=== PATIENT | male | born 1960 | race Caucasian/White ===

== ENCOUNTER 2016-08-10 13:47 | Inpatient (IN) | payer MEDICARE, OTHER ==
[2016-08-10] MEDS ORDERED: HYDROmorphone 1 mg/mL 1mL Syr IVP STA ×3 (14:17→16:03)
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
[2016-08-10] MEDS ORDERED: Sodium Chloride 0.9% 1,000 ML IV ONE ×2 (14:19→16:12)
[2016-08-10] MEDS ORDERED: HYDROmorphone 1 mg/mL 1mL Syr ONE ×2 (14:21→16:04)
[2016-08-10 14:42] LABS: % BASOPHILS 0.2 % (0.0-2.0); % EOSINOPHILS 1.2 % (0.0-5.0); % LYMPHOCYTES 12.9 % (20.0-50.0); % MONOCYTES 5.9 % (2.0-10.0); % NEUTROPHILS 79.8 % (40.0-80.0); HEMATOCRIT 40.6 % (39.0-49.0); HEMOGLOBIN 13.7 gm/dL (13.2-17.3); MEAN CORPUSCULAR HEMOGLOBIN 31.7 pg (26.0-30.0); MEAN CORPUSCULAR HGB CONC 33.8 pg (28.0-36.0); MEAN PLATELET VOLUME 6.9 fl; NEUTROPHILE ABSOLUTE 4.6 Th/cmm (1.8-8.0); RED BLOOD COUNT 4.32 Mil/cmm (4.30-5.70); RED CELL DISTRIBUTION WIDTH 12.6 % (11.5-20.0); WHITE BLOOD COUNT 5.7 Th/cmm (4.8-10.8)
[2016-08-10 14:53] LABS: PLATELET COUNT 334 Th/cmm (150-400)
[2016-08-10 14:56] LABS: ALB/GLOB RATIO 1.4 (1.0-1.8); ALKALINE PHOSPHATASE 152 U/L (34-104); AMYLASE SERUM 38 U/L (29-103); ANION GAP 11.6 (7.0-16.0); BILIRUBIN,TOTAL 0.4 mg/dL (0.3-1.0); BUN - UREA NITROGEN 12 mg/dL (7-25); BUN/CREATININE RATIO 13.3; CALCIUM SERUM 10.2 mg/dL (8.6-10.3); CARBON DIOXIDE 21.2 mEq/L (21.0-31.0); CHLORIDE 108 mEq/L (98-107); CREATININE - SERUM 0.9 mg/dL (0.7-1.3); GLUCOSE 112 mg/dL (70-105); LIPASE 18 U/L (11-82); POTASSIUM SERUM 3.8 mEq/L (3.5-5.1); SGOT 15 U/L (13-39); SGPT/ALT 17 U/L (7-52); SODIUM SERUM 137 mEq/L (136-145)
--- NOTE | 2016-08-10 15:50 | Diagnostic Imaging Report ---
CT scan abdomen and pelvis without intravenous contrast HISTORY: Pain Total DLP equals 293 CTDI equals 7.0 Axial sections were obtained from the xiphoid process down to the pubic symphysis. The exam is compared with prior study of June 06, 2016. The liver exhibits a homogeneous parenchyma. No focal lesions. The spleen appears normal. No abnormality seen in the region of the pancreas. Bilateral punctate nonobstructing renal calculi are seen. Little change from the prior study. Intraluminal density seen in the gallbladder suggestive of cholelithiasis. If necessary, an ultrasound exam would provide additional assessment. There appears to be mild dilatation and wall thickening along the ascending colon. Inflammatory change (colitis) cannot be excluded. Clinical correlation is needed. No discrete abnormal masses or fluid collections seen within the pelvis. Several colonic diverticula are noted. Degenerative changes noted to the spine. There is a stable 1.0 cm sclerotic density noted within the left ilium of the pelvis. As an isolated finding, the finding is probably related to an incidental "bone island". IMPRESSION: 1. Mild dilatation along with wall thickening along a segment of the ascending colon. Inflammatory change (colitis or diverticulitis) cannot be excluded. Clinical correlation is needed 2. Stable bilateral punctate nonobstructing renal calculi 3. Intraluminal density within the gallbladder suggesting cholelithiasis. An ultrasound exam would provide additional assessment. 4. Diverticulosis (see above)
[2016-08-10] MEDS ORDERED: cefTRIAXone 2 GM in Sodium Chloride 0.9% 100 ML IV ONE (16:11)
[2016-08-10 16:30] LABS: URINE BILIRUBIN SMALL (NEGATIVE); URINE COLOR YELLOW; URINE GLUCOSE (UA) NEGATIVE (NEGATIVE)
[2016-08-10 16:31] LABS: URINE BLOOD MODERATE (NEGATIVE); URINE KETONE 15 mg/dL (NEGATIVE); URINE PH 5.5; URINE PROTEIN 100 mg/dL (NEGATIVE); URINE UROBILINOGEN 0.2 E.U./dL (0.2 - 1.0)
[2016-08-10 16:32] LABS: URINE BACTERIA NONE SEEN /hpf (NONE SEEN); URINE EPITHELIAL CELLS NONE SEEN /lpf (FEW)
[2016-08-10] MEDS ORDERED: HYDROmorphone 2 mg/mL 1mL Vial ONE (18:41)
[2016-08-10 20:48] VITALS: BP 124/85
[2016-08-10] MEDS: Sodium Chloride 0.9% 1,000 ML IV SCH (22:00)
[2016-08-10] MEDS: Levofloxacin 500mg/100mL 500 MG/100 ML BAG IV SCH (22:30)
[2016-08-10] MEDS: HYDROmorphone 1 mg/mL 1mL Syr IVP PRN (22:30)
[2016-08-10] MEDS ORDERED: Levofloxacin 500mg/100mL 500 MG/100 ML BAG IV ONE (22:48)
[2016-08-10] MEDS ORDERED: metroNIDAZOLE 500mg/NS 100mL 500 MG/100 ML BAG IV ONE ×2 (22:49)
--- NOTE | 2016-08-10 23:41 | Admit Criteria Form ---
Admit Criteria Forms - Admit Criteria Diagnosis: ABDOMINAL PAIN Clinical Indications for Admission to Inpatient Care (Place 'X' for any and all applicable criteria): Admission is indicated for ANY ONE of the following(1)(2)(3)(4)(5): [X ]I. Inpatient admission required rather than observation care (Also use Abdominal Pain: Observation Care, as appropriate) because of ANY ONE of the following: [ ]a) Severe pain requiring acute inpatient management [ ]b) Identification of etiology/finding that requires inpatient care (eg, aortic dissection, free air) [ ]c) Absent bowel sounds with complete ileus(6) [ ]d) Suspected toxic megacolon [ ]e) Severe electrolyte abnormalities requiring inpatient care [ ]f) High fever or infection requiring inpatient admission as indicated by ANY ONE of following(7)(8): [ ] i) Appropriate outpatient or observational care antimicrobial treatment unavailable, not effective, or not feasible [ ] ii) Documented bacteremia [ ] iii) Temperature > 104.9 degrees F (oral) [ ] iv) T >103.1 F (oral) or < 96.8 F(rectal) that does not respond to all emergency treatment measures [ ]g) Signs of intestinal obstruction [B] [ ]h) Hemodynamic instability [ ]i) IV fluid to replace significant ongoing losses (greater than 3 L/m2 per day) (12)(13) [ ]j) Percutaneous or open drainage (eg, abscess, biliary tract ) procedures [ ]k) Parenteral nutrition regimen that must be implemented on inpatient basis [ X]l) Other condition,treatment or monitoring requiring inpatient admission. [ ]II. Peritoneal signs present [ ]III. Surgery needed that cannot be performed on an ambulatory basis. [ ]IV. Evaluation requires patient to not eat or drink for extended period ( eg, more than 24 hours). [ ]V. Contraindications and/or Inappropriate clinical situations for Observational Care in patients with abdominal pain, when ANY ONE of the following is required: [ ]a) Thorough evaluation is required to prevent catastrophic events due to delays in diagnosing (e.g.Mesenteric ischemia) 1,3 [ ]b) Patient with severe pathology or with chronic symptoms unlikely to improve in the ED stay (3) [ ]. General contraindications and/or Inappropriate clinical situations for Observational Care in patients with abdominal pain, when ANY ONE of the following is required: [ ]a) Prediction of prolongation of LOS based on ANY ONE of the following may be considered as a contraindication for observational care 2, 3, 4, 5, 6, 7, 8, 9, 10, 11 [ ]i) Age > 65 yrs. [ ]ii) Patient arriving by ambulance [ ]iii) Patient with high acuity [ ]iv) Patient requiring vital sign monitoring [ ]v) Patient on IV medication [ ]b) Systolic blood pressures 180mmHg 3,12 [ ]c) Patient with altered mental status including delirium and other alteration of consciousness, (3) [ ]d) Patient whose discharge disposition will be to a [facility] home or rehabilitation home should not be managed in Emergency Department Observation Unit. CMS rule requires 3 days hospital stay before such placement.3,13 [ ]e) Patient with failure to thrive due to broad array of etiologies 3,16,17 [ ]f) Inability to ambulate 3,14 Extended stay beyond goal length of stay may be needed for(2)(3): [ ]a) Persistent abdominal pain with suspected intra-abdominal process [ ]b) Diagnosed condition requiring continued stay (e.g., pancreatitis, complicated diverticulitis) [ ]c) Surgery (e.g., colectomy) The original [employer] content created by [employer] has been revised. The portions of the content which have been revised are identified through the use of italic text or in bold, and [facility] has neither reviewed nor approved the modified material.All other unmodified content is copyright [employer]. Please see references footnoted in the original [employer] edition 2016
[2016-08-11] MEDS: HYDROmorphone 1 mg/mL 1mL Syr IVP PRN ×3 (04:10→16:18)
[2016-08-11] MEDS: Albuterol Nebulizer 2.5mg/3mL HHN PRN ×3 (04:16→20:30)
[2016-08-11] MEDS: metroNIDAZOLE 500mg/NS 100mL 500 MG/100 ML BAG IV SCH ×3 (05:17→20:48)
--- NOTE | 2016-08-11 09:09 | General Progress Note ---
Subjective - Review of Systems Service Date: 08/11/16 Subjective: I want pain medication every 4 hours Objective - Results Result Diagrams: 08/10/16 14:20 08/10/16 14:20 Recent Labs: Laboratory Last Values WBC 5.7 Th/cmm (4.8-10.8) 08/10/16 14:20 RBC 4.32 Mil/cmm (4.30-5.70) 08/10/16 14:20 Hgb 13.7 gm/dL (13.2-17.3) 08/10/16 14:20 Hct 40.6 % (39.0-49.0) 08/10/16 14:20 MCV 94.0 fl (80-99) 08/10/16 14:20 MCH 31.7 pg (26.0-30.0) H 08/10/16 14:20 MCHC Differential 33.8 pg (28.0-36.0) 08/10/16 14:20 RDW 12.6 % (11.5-20.0) 08/10/16 14:20 Plt Count 334 Th/cmm (150-400) D 08/10/16 14:20 MPV 6.9 fl 08/10/16 14:20 Neutrophils % 79.8 % (40.0-80.0) 08/10/16 14:20 Lymphocytes % 12.9 % (20.0-50.0) L 08/10/16 14:20 Monocytes % 5.9 % (2.0-10.0) 08/10/16 14:20 Eosinophils % 1.2 % (0.0-5.0) 08/10/16 14:20 Basophils % 0.2 % (0.0-2.0) 08/10/16 14:20 Sodium 137 mEq/L (136-145) 08/10/16 14:20 Potassium 3.8 mEq/L (3.5-5.1) 08/10/16 14:20 Chloride 108 mEq/L (98-107) H 08/10/16 14:20 Carbon Dioxide 21.2 mEq/L (21.0-31.0) 08/10/16 14:20 Anion Gap 11.6 (7.0-16.0) 08/10/16 14:20 BUN 12 mg/dL (7-25) 08/10/16 14:20 Creatinine 0.9 mg/dL (0.7-1.3) 08/10/16 14:20 Est GFR ( Amer) > 60.0 ml/min 08/10/16 14:20 Est GFR (Non-Af Amer) > 60.0 ml/min 08/10/16 14:20 BUN/Creatinine Ratio 13.3 08/10/16 14:20 Glucose 112 mg/dL (70-105) H 08/10/16 14:20 Whole Bld Lactic Acid 1.04 mmol/L (0.60-2.00) 08/10/16 14:20 Calcium 10.2 mg/dL (8.6-10.3) 08/10/16 14:20 Total Bilirubin 0.4 mg/dL (0.3-1.0) 08/10/16 14:20 AST 15 U/L (13-39) 08/10/16 14:20 ALT 17 U/L (7-52) 08/10/16 14:20 Alkaline Phosphatase 152 U/L (34-104) H 08/10/16 14:20 Troponin I < 0.01 ng/mL (0.01-0.05) L 08/10/16 14:20 Total Protein 7.6 gm/dL (6.0-8.3) 08/10/16 14:20 Albumin 4.4 gm/dL (4.2-5.5) 08/10/16 14:20 Globulin 3.2 gm/dL 08/10/16 14:20 Albumin/Globulin Ratio 1.4 (1.0-1.8) 08/10/16 14:20 Amylase 38 U/L (29-103) 08/10/16 14:20 Lipase 18 U/L (11-82) 08/10/16 14:20 Urine Source RANDOM 08/10/16 15:55 Urine Color YELLOW 08/10/16 15:55 Urine Clarity CLEAR (CLEAR) 08/10/16 15:55 Urine pH 5.5 08/10/16 15:55 Ur Specific [place] 1.030 (1.005-1.030) 08/10/16 15:55 Urine Protein 100 mg/dL (NEGATIVE) H 08/10/16 15:55 Urine Glucose (UA) NEGATIVE mg/dL (NEGATIVE) 08/10/16 15:55 Urine Ketones 15 mg/dL (NEGATIVE) H 08/10/16 15:55 Urine Blood MODERATE (NEGATIVE) H 08/10/16 15:55 Urine Nitrate NEGATIVE (NEGATIVE) 08/10/16 15:55 Urine Bilirubin SMALL (NEGATIVE) H 08/10/16 15:55 Urine Urobilinogen 0.2 E.U./dL (0.2 - 1.0) 08/10/16 15:55 Ur Leukocyte Esterase NEGATIVE (NEGATIVE) 08/10/16 15:55 Urine RBC 10-25 /hpf (0-5) H 08/10/16 15:55 Urine WBC 2-5 /hpf (0-5) H 08/10/16 15:55 Ur Epithelial Cells NONE SEEN /lpf (FEW) 08/10/16 15:55 Urine Bacteria NONE SEEN /hpf (NONE SEEN) 08/10/16 15:55 - Physical Exam Vitals and I&O: Vital Signs Temp 98.2 F 08/11/16 03:58 Pulse 85 08/11/16 08:31 Resp 18 08/11/16 07:07 BP 154/98 08/11/16 08:31 Pulse Ox 94 08/11/16 07:07 Intake & Output 08/10/16 08/11/16 08/11/16 18:59 06:59 18:59 Intake Total 200 Output Total 200 Balance 0 Intake: Oral 200 Output: Urine 200 Other: Stool Characteristics Soft Active Medications: Current Medications Albuterol Sulfate (Albuterol 2.5mg/3ml Neb Ud) 2.5 mg HHN Q8HR PRN PRN Reason: sob Stop: 10/09/16 21:50 Last Admin: 08/11/16 04:16 Dose: 2.5 mg Amlodipine Besylate (Norvasc) 10 mg PO DAILY [facility] Stop: 10/10/16 08:59 Hydromorphone HCl (Dilaudid) 1 mg IVP Q6HR PRN PRN Reason: Pain (Moderate) Stop: 10/09/16 21:30 Last Admin: 08/11/16 04:10 Dose: 1 mg Sodium Chloride (Nacl 0.9%) 1,000 mls @ 75 mls/hr IV .[id number] [facility] Stop: 10/09/16 21:29 Last Admin: 08/10/16 22:00 Dose: 75 mls/hr Levofloxacin (Levaquin Pb) 500 mg in 100 mls @ 100 mls/hr IV Q24HR [facility] Stop: 10/09/16 21:29 Last Admin: 08/10/16 22:30 Dose: 100 mls/hr Metronidazole (Flagyl) 500 mg in 100 mls @ 100 mls/hr IV Q8HR [facility] Stop: 10/10/16 04:59 Last Admin: 08/11/16 05:17 Dose: 100 mls/hr Propranolol HCl (Inderal) 40 mg PO DAILY [facility] Stop: 10/10/16 08:59 Last Admin: 08/11/16 08:31 Dose: 40 mg General: Alert, Oriented x3, Cooperative HEENT: Atraumatic Neck: Supple Cardiovascular: Regular rate Lungs: Clear to auscultation Abdomen: Other (Pain at palpation, BS increased) Extremities: Other (No edema) Neurological: Normal gait Skin: Other (Multiplr skin scars in abdomen) Psych/Mental Status: Mental status NL - Procedures Procedures: Procedures Procedure Code Date INJECT/INFUSE NEC 99.29 10/22/14 VENOUS PUNCTURE NEC 38.99 05/12/14 Assessment/Plan - Problem List Patient Problems: All Active Problems GENERALIZED ABDOMINAL PAIN (Acute) Abdominal pain (Active) R10.9 Kidney stone (Active 02/04/13) N20.0 Abdominal pain in male (Acute) R10.9 Dyspnea (Acute) R06.00 Flank pain (Acute 11/10/14) R10.9 Flank pain, chronic (Acute) R10.9 Left flank pain (Acute) R10.9 Lower abdominal pain (Acute) R10.30 - Assessment Assessment: Pain is awake, alert, calm. Dx: Abdominal pain possible secondary to colitis, UTI, HTN, COPD - Plan Plan: Patient in IV levaquin and metronidazole, IV ns, Dilaudid. Awaiting GI eval.
[2016-08-11 09:10] LABS: % BASOPHILS 0.2 % (0.0-2.0); % EOSINOPHILS 6.8 % (0.0-5.0); % LYMPHOCYTES 28.2 % (20.0-50.0); % NEUTROPHILS 56.8 % (40.0-80.0); HEMOGLOBIN 12.3 gm/dL (13.2-17.3); MEAN CELL VOLUME 93.6 fl (80-99); MEAN CORPUSCULAR HGB CONC 35.2 pg (28.0-36.0); PLATELET COUNT 276 Th/cmm (150-400); RED BLOOD COUNT 3.73 Mil/cmm (4.30-5.70); RED CELL DISTRIBUTION WIDTH 12.5 % (11.5-20.0); WHITE BLOOD COUNT 5.1 Th/cmm (4.8-10.8)
[2016-08-11 09:19] LABS: HEMATOCRIT 34.9 % (39.0-49.0)
[2016-08-11 09:32] LABS: ALB/GLOB RATIO 1.3 (1.0-1.8); ALKALINE PHOSPHATASE 116 U/L (34-104); ANION GAP 7.9 (7.0-16.0); BILIRUBIN,TOTAL 0.4 mg/dL (0.3-1.0); BUN - UREA NITROGEN 11 mg/dL (7-25); BUN/CREATININE RATIO 12.2; CALCIUM SERUM 8.9 mg/dL (8.6-10.3); CARBON DIOXIDE 22.7 mEq/L (21.0-31.0); CHLORIDE 109 mEq/L (98-107); CREATININE - SERUM 0.9 mg/dL (0.7-1.3); GLUCOSE 95 mg/dL (70-105); POTASSIUM SERUM 3.6 mEq/L (3.5-5.1); SGOT 11 U/L (13-39); SGPT/ALT 12 U/L (7-52); SODIUM SERUM 136 mEq/L (136-145)
--- NOTE | 2016-08-11 11:31 | History & Physical ---
CHIEF COMPLAINT: Abdominal pain. HISTORY OF PRESENT ILLNESS: This is the case of a white male who came referring abdominal pain for 1 week. The patient referred occasionally pain radiates to the back and both sides of the abdomen. Pain is 8-10 and increased when walks or move. The patient referred that when he gets the pain, he feels the sensation to have a bowel movement. The patient had nausea with vomiting 3 times yesterday. No diarrhea. PAST MEDICAL HISTORY: The patient has past medical history of hypertension, asthma, COPD, history of multiple renal stones that required lithotripsy and surgery, osteoarthritis, and ____ skin and bones ____ in the abdomen. SOCIAL HISTORY: The patient smokes half a pack daily. The patient denies use of alcohol or drugs. The patient lives with at home. FAMILY HISTORY: Unremarkable. REVIEW OF SYSTEMS: GENERAL: The patient denies fever or chills. LUNGS: The patient denies shortness of breath. HEART: The patient denies chest pain. ABDOMEN: The patient referred abdominal pain. EXTREMITIES: Unremarkable. NEUROLOGICAL: Unremarkable. PHYSICAL EXAMINATION: GENERAL: Does reveal fairly nourished and developed white male, awake, alert and complaining of abdominal pain. HEENT: Head is normocephalic and atraumatic. Eyes: Pupils are reactive to light. Nose: No evidence of nasal obstruction. Ears: No evidence of any discharge. Mouth, some teeth missing with multiple caries. LUNGS: Bilateral air entry. No wheezing, no crackles. HEART: Regular rate and rhythm. ABDOMEN: Soft, tender on palpation in all abdomen. Shows scars for ____ in all abdomen. Bowel sound is increased. EXTREMITIES: Full movement of all extremities. No edema. NEUROLOGIC: The patient is awake, alert, in some distress secondary to abdominal pain. Nerves 2-12 grossly intact. No neurological deficit at this moment. IMPRESSION: 1. Abdominal pain, possible secondary to colitis. 2. Urinary tract infection. 3. Hypertension. 4. Asthma. 5. Chronic obstructive pulmonary disease. PLAN: 1. The patient will be admitted in the medical surgical floor. 2. Dilaudid for pain control. 3. Levaquin. 4. Metronidazole. 5. IV normal saline. 6. Consult with GI. 7. Continue with home medications. JOB# [id number]
--- NOTE | 2016-08-11 14:48 | Diagnostic Imaging Report ---
Abdominal ultrasound HISTORY: Pain The liver appears enlarged. No focal lesions. The exam of the gallbladder demonstrates 2 intraluminal echogenic densities. Despite the absence of acoustic shadowing, findings are most likely related to gallstones. The largest measures 9 mm. In addition, several low-level intraluminal echoes that may be related to "sludge" noted. No biliary dilatation (common bile duct is 3 mm). The pancreas is not well visualized due to bowel gas. The kidneys appear normal bilaterally. No other definite retroperitoneal or intra-abdominal abnormalities. IMPRESSION: 1. Findings consistent with cholelithiasis 2. Hepatomegaly
[2016-08-11] MEDS: Sodium Chloride 0.9% 1,000 ML IV SCH (17:20)
[2016-08-11] MEDS ORDERED: HYDROmorphone 1 mg/mL 1mL Syr IVP STA (20:03)
[2016-08-11] MEDS: Levofloxacin 500mg/100mL 500 MG/100 ML BAG IV SCH (22:22)
--- NOTE | 2016-08-12 01:09 | Consultation ---
INPATIENT GI CONSULT REFERRING PHYSICIAN: Dr. Chavez Maravilla. REASON FOR CONSULTATION: Colitis. HISTORY OF PRESENT ILLNESS: This is a 55-year-old male who has been having abdominal pain for approximately one week across his abdomen that was quite severe. Had some nausea and vomiting, but no hematemesis or coffee-ground emesis. Denies having any diarrhea, but has urgency. PAST MEDICAL HISTORY: Include hypertension, asthma, COPD, kidney stones, and osteoarthritis. PAST SURGICAL HISTORY: None to abdomen. FAMILY HISTORY: Noncontributory. SOCIAL HISTORY: Smokes tobacco. No alcohol or IV drug usage. ALLERGIES: KETOROLAC and MORPHINE. CURRENT MEDICATIONS: Albuterol, Norvasc, Dilaudid, Levaquin, Flagyl, and Inderal. REVIEW OF SYSTEMS: Ten-point review of systems was performed and the pertinent positive was the abdominal pain, nausea, and vomiting. All other systems were otherwise negative. PHYSICAL EXAMINATION: VITAL SIGNS: Temperature 98.4, breathing 18, pulse 85, blood pressure /98, and satting 91%. GENERAL: In no apparent distress. EYES: Anicteric, normal conjunctivae. HEENT: Normocephalic and atraumatic. Moist mucous membranes. NECK: Soft, supple. CHEST: Clear. Normal effort. CARDIOVASCULAR: Regular rate and rhythm. ABDOMEN: Soft and nondistended. Tender abdomen. No rebound or guarding. SKIN: Warm, dry. EXTREMITIES: Reveal no cyanosis. PSYCHOLOGIC: Alert and oriented x 3. CT showed mild dilatation along with thickening of the ascending colon. LABORATORY DATA: Show white count 5.1, hemoglobin 12.3, and platelets of 276,000. Total bilirubin 0.4, AST 11, ALT 12, alkaline phosphatase 116, and lipase 18. IMPRESSION: This is a 55-year-old male with colitis, etiology is unclear, could be due to an infectious versus underlying inflammatory bowel disease versus ischemia. Colonoscopy can be pursued to evaluate the colon on more specific basis because of the findings on CAT scan. I did discuss with the patient about the colonoscopy that in his setting there is a high risk of perforation because of colitis, but the benefit would be to determine the underlying etiology and to address it. The patient understands these risks and is willing to have the procedure. He was also made aware besides the risk of perforation, need for surgery and colostomy that there is also risk of bleeding and infection, and agreed. PLAN: 1. Colonoscopy. 2. Continue antibiotics. 3. Check a lactic acid level. 4. If condition gets worse, may need surgery. 5. Check Protime. Thank you for allowing me to participate. Please call me if you have any questions. JOB# [id number]
[2016-08-12] MEDS: HYDROmorphone 1 mg/mL 1mL Syr IVP PRN ×4 (02:26→22:15)
[2016-08-12] MEDS: metroNIDAZOLE 500mg/NS 100mL 500 MG/100 ML BAG IV SCH ×3 (05:29→22:10)
[2016-08-12] MEDS: Albuterol Nebulizer 2.5mg/3mL HHN PRN ×2 (05:44→15:48)
[2016-08-12 06:35] LABS: % BASOPHILS 0.3 % (0.0-2.0); % EOSINOPHILS 5.3 % (0.0-5.0); % LYMPHOCYTES 28.4 % (20.0-50.0); % MONOCYTES 8.7 % (2.0-10.0); % NEUTROPHILS 57.3 % (40.0-80.0); HEMOGLOBIN 13.4 gm/dL (13.2-17.3); MEAN CELL VOLUME 93.9 fl (80-99); MEAN CORPUSCULAR HEMOGLOBIN 31.9 pg (26.0-30.0); NEUTROPHILE ABSOLUTE 3.1 Th/cmm (1.8-8.0); PLATELET COUNT 277 Th/cmm (150-400); RED BLOOD COUNT 4.19 Mil/cmm (4.30-5.70); RED CELL DISTRIBUTION WIDTH 12.5 % (11.5-20.0); WHITE BLOOD COUNT 5.4 Th/cmm (4.8-10.8)
[2016-08-12 06:44] LABS: INR 1.06 (0.5-1.4); PROTHROMBIN TIME (TEST) 10.5 SECONDS (9.5-11.5)
[2016-08-12 06:50] LABS: ALB/GLOB RATIO 1.2 (1.0-1.8); ALKALINE PHOSPHATASE 122 U/L (34-104); BILIRUBIN,TOTAL 0.4 mg/dL (0.3-1.0); BUN - UREA NITROGEN 8 mg/dL (7-25); BUN/CREATININE RATIO 11.4; CALCIUM SERUM 9.2 mg/dL (8.6-10.3); CARBON DIOXIDE 22.2 mEq/L (21.0-31.0); CHLORIDE 107 mEq/L (98-107); CREATININE - SERUM 0.7 mg/dL (0.7-1.3); GLUCOSE 88 mg/dL (70-105); POTASSIUM SERUM 3.2 mEq/L (3.5-5.1); SGOT 15 U/L (13-39); SGPT/ALT 13 U/L (7-52); SODIUM SERUM 137 mEq/L (136-145)
[2016-08-12 07:21] LABS: HEMATOCRIT 39.3 % (39.0-49.0)
--- NOTE | 2016-08-12 08:22 | General Progress Note ---
Subjective - Review of Systems Service Date: 08/12/16 Subjective: I want more pain medication Objective - Results Result Diagrams: 08/12/16 05:31 08/12/16 05:31 Recent Labs: Laboratory Last Values WBC 5.4 Th/cmm (4.8-10.8) 08/12/16 05:31 RBC 4.19 Mil/cmm (4.30-5.70) L 08/12/16 05:31 Hgb 13.4 gm/dL (13.2-17.3) 08/12/16 05:31 Hct 39.3 % (39.0-49.0) D 08/12/16 05:31 MCV 93.9 fl (80-99) 08/12/16 05:31 MCH 31.9 pg (26.0-30.0) H 08/12/16 05:31 MCHC Differential 34.0 pg (28.0-36.0) 08/12/16 05:31 RDW 12.5 % (11.5-20.0) 08/12/16 05:31 Plt Count 277 Th/cmm (150-400) 08/12/16 05:31 MPV 7.0 fl 08/12/16 05:31 Neutrophils % 57.3 % (40.0-80.0) 08/12/16 05:31 Lymphocytes % 28.4 % (20.0-50.0) 08/12/16 05:31 Monocytes % 8.7 % (2.0-10.0) 08/12/16 05:31 Eosinophils % 5.3 % (0.0-5.0) H 08/12/16 05:31 Basophils % 0.3 % (0.0-2.0) 08/12/16 05:31 PT 10.5 SECONDS (9.5-11.5) 08/12/16 05:31 INR 1.06 (0.5-1.4) 08/12/16 05:31 Sodium 137 mEq/L (136-145) 08/12/16 05:31 Potassium 3.2 mEq/L (3.5-5.1) L 08/12/16 05:31 Chloride 107 mEq/L (98-107) 08/12/16 05:31 Carbon Dioxide 22.2 mEq/L (21.0-31.0) 08/12/16 05:31 Anion Gap 11.0 (7.0-16.0) 08/12/16 05:31 BUN 8 mg/dL (7-25) 08/12/16 05:31 Creatinine 0.7 mg/dL (0.7-1.3) 08/12/16 05:31 Est GFR ( Amer) > 60.0 ml/min 08/12/16 05:31 Est GFR (Non-Af Amer) > 60.0 ml/min 08/12/16 05:31 BUN/Creatinine Ratio 11.4 08/12/16 05:31 Glucose 88 mg/dL (70-105) 08/12/16 05:31 Whole Bld Lactic Acid 1.06 mmol/L (0.60-2.00) 08/11/16 13:05 Calcium 9.2 mg/dL (8.6-10.3) 08/12/16 05:31 Total Bilirubin 0.4 mg/dL (0.3-1.0) 08/12/16 05:31 AST 15 U/L (13-39) 08/12/16 05:31 ALT 13 U/L (7-52) 08/12/16 05:31 Alkaline Phosphatase 122 U/L (34-104) H 08/12/16 05:31 Troponin I < 0.01 ng/mL (0.01-0.05) L 08/10/16 14:20 Total Protein 6.8 gm/dL (6.0-8.3) 08/12/16 05:31 Albumin 3.7 gm/dL (4.2-5.5) L 08/12/16 05:31 Globulin 3.1 gm/dL 08/12/16 05:31 Albumin/Globulin Ratio 1.2 (1.0-1.8) 08/12/16 05:31 Amylase 38 U/L (29-103) 08/10/16 14:20 Lipase 18 U/L (11-82) 08/10/16 14:20 Urine Source RANDOM 08/10/16 15:55 Urine Color YELLOW 08/10/16 15:55 Urine Clarity CLEAR (CLEAR) 08/10/16 15:55 Urine pH 5.5 08/10/16 15:55 Ur Specific [place] 1.030 (1.005-1.030) 08/10/16 15:55 Urine Protein 100 mg/dL (NEGATIVE) H 08/10/16 15:55 Urine Glucose (UA) NEGATIVE mg/dL (NEGATIVE) 08/10/16 15:55 Urine Ketones 15 mg/dL (NEGATIVE) H 08/10/16 15:55 Urine Blood MODERATE (NEGATIVE) H 08/10/16 15:55 Urine Nitrate NEGATIVE (NEGATIVE) 08/10/16 15:55 Urine Bilirubin SMALL (NEGATIVE) H 08/10/16 15:55 Urine Urobilinogen 0.2 E.U./dL (0.2 - 1.0) 08/10/16 15:55 Ur Leukocyte Esterase NEGATIVE (NEGATIVE) 08/10/16 15:55 Urine RBC 10-25 /hpf (0-5) H 08/10/16 15:55 Urine WBC 2-5 /hpf (0-5) H 08/10/16 15:55 Ur Epithelial Cells NONE SEEN /lpf (FEW) 08/10/16 15:55 Urine Bacteria NONE SEEN /hpf (NONE SEEN) 08/10/16 15:55 - Physical Exam Vitals and I&O: Vital Signs Temp 97.8 F 08/12/16 08:00 Pulse 79 08/12/16 08:09 Resp 18 08/12/16 08:00 BP 157/99 08/12/16 08:09 Pulse Ox 96 08/12/16 08:00 Intake & Output 08/11/16 08/12/16 08/12/16 18:59 06:59 18:59 Intake Total 1600 2800 Output Total 409 Balance 1600 2391 Intake: Intake, IV Amount 1100 300 Levofloxacin 500mg/100mL 100 500 mg In 100 ml @ 100 mls/hr IV Q24HR [facility] Rx#: [id number] Sodium Chloride 0.9% 1, 1000 000 ml @ 75 mls/hr IV . [id number] [facility] Rx#:[id number] metroNIDAZOLE 500mg/NS 100 200 100mL 500 mg In 100 ml @ 100 mls/hr IV Q8HR [facility] Rx #:[id number] Oral 500 2500 Output: Urine 400 Stool 9 Other: # Voids 4 6 # Bowel Movements 5 12 Active Medications: Current Medications Albuterol Sulfate (Albuterol 2.5mg/3ml Neb Ud) 2.5 mg HHN Q8HR PRN PRN Reason: sob Stop: 10/09/16 21:50 Last Admin: 08/12/16 05:44 Dose: 2.5 mg Amlodipine Besylate (Norvasc) 10 mg PO DAILY [facility] Stop: 10/10/16 08:59 Last Admin: 08/12/16 08:09 Dose: 10 mg Hydromorphone HCl (Dilaudid) 1 mg IVP Q6HR PRN PRN Reason: Pain (Moderate) Stop: 10/09/16 21:30 Last Admin: 08/12/16 02:26 Dose: 1 mg Sodium Chloride (Nacl 0.9%) 1,000 mls @ 75 mls/hr IV .[id number] [facility] Stop: 10/09/16 21:29 Last Admin: 08/11/16 17:20 Dose: 75 mls/hr Levofloxacin (Levaquin Pb) 500 mg in 100 mls @ 100 mls/hr IV Q24HR [facility] Stop: 10/09/16 21:29 Last Infusion: 08/11/16 23:25 Dose: Infused Metronidazole (Flagyl) 500 mg in 100 mls @ 100 mls/hr IV Q8HR [facility] Stop: 10/10/16 04:59 Last Infusion: 08/12/16 06:28 Dose: Infused General: Alert, Oriented x3, Cooperative, No acute distress HEENT: Atraumatic Neck: Supple Cardiovascular: Regular rate Lungs: Clear to auscultation Abdomen: Bowel sounds, Soft (Tender at palpation ) Extremities: Other (No edema) Neurological: Normal gait Skin: Other (Warm and dry) Psych/Mental Status: Mental status NL - Procedures Procedures: Procedures Procedure Code Date INJECT/INFUSE NEC 99.29 10/22/14 VENOUS PUNCTURE NEC 38.99 05/12/14 Assessment/Plan - Problem List Patient Problems: All Active Problems GENERALIZED ABDOMINAL PAIN (Acute) Abdominal pain (Active) R10.9 Kidney stone (Active 02/04/13) N20.0 Abdominal pain in male (Acute) R10.9 Dyspnea (Acute) R06.00 Flank pain (Acute 11/10/14) R10.9 Flank pain, chronic (Acute) R10.9 Left flank pain (Acute) R10.9 Lower abdominal pain (Acute) R10.30 - Assessment Assessment: Pain is awake, alert, calm. Dx: Abdominal pain possible secondary to colitis, UTI, HTN, COPD - Plan Plan: Patient in IV levaquin and metronidazole, IV ns, Dilaudid. Colonoscopy will be done today
[2016-08-12] MEDS ORDERED: Meperidine 25 mg/mL 1mL Syr IVP PRN (08:28)
[2016-08-12] MEDS ORDERED: Lactated Ringer 1,000 ML IV SCH (08:30)
--- NOTE | 2016-08-12 09:52 | Diagnostic Imaging Report ---
CHEST X-RAY: AP view INDICATION: Shortness of breath COMPARISON: Chest x-ray 04/06/2016 FINDINGS: COPD lung changes are seen with developing increased right mid lung markings. No pleural abnormalities. Heart size is normal. There is probable minimal atherosclerosis of the aortic arch. IMPRESSION: COPD lung changes with slight increased right mid lung markings. Developing infiltrate in this region cannot be excluded. Follow-up is recommended.
--- NOTE | 2016-08-12 14:50 | Operative Report ---
INPATIENT GASTROINTESTINAL PROCEDURE PROCEDURE: Colonoscopy with biopsy. REFERRING PHYSICIAN: Dr. Chavez Maravilla. REASON FOR PROCEDURE: Colitis. CONSENT: Risks, benefits, alternatives, nature, indication, possible outcomes were discussed. Mentioned bleeding, infection, perforation, , disability, cardiopulmonary distress and arrest, missed lesion and cancers, need for surgery. The patient expressed understanding and provided informed consent. PREOPERATIVE DIAGNOSIS: Colitis. POSTOPERATIVE DIAGNOSIS: Right-sided colitis. MEDICATIONS: Provided by anesthesiologist. DESCRIPTION OF PROCEDURE: The patient was placed on left side. Rectal exam was performed and was normal. Pediatric colonoscope was advanced from the anus to the cecum. The appendiceal orifices were seen. There was pseudomembranous colitis in this particular area in the proximal ascending colon. Terminal ileum was intubated and appeared to be normal. Scope slowly withdrawn ____ mucosa along the way. Stool was collected. Biopsies were taken in the right side of the colon. Once in the rectum, retroflexion was performed, scope was straightened and removed along with air. COMPLICATIONS: None. FINDINGS: 1. Colitis, primarily in the right side of the colon, status post biopsy and stool collection. 2. Normal terminal ileum. RECOMMENDATIONS: 1. Follow up on biopsy and stools cultures. 2. Continue antibiotics. Thank you for allowing me to participate. Please call me if you have any questions. JOB# [id number]
[2016-08-12] MEDS: Sodium Chloride 0.9% 1,000 ML IV SCH (20:56)
[2016-08-12] MEDS: Venelex 60gm Tube TP SCH (22:18)
[2016-08-12] MEDS: Levofloxacin 500mg/100mL 500 MG/100 ML BAG IV SCH (23:55)
[2016-08-13] MEDS: Albuterol Nebulizer 2.5mg/3mL HHN PRN ×2 (04:08→20:02)
[2016-08-13] MEDS: metroNIDAZOLE 500mg/NS 100mL 500 MG/100 ML BAG IV SCH ×3 (04:11→20:53)
[2016-08-13] MEDS: HYDROmorphone 1 mg/mL 1mL Syr IVP PRN ×4 (04:20→20:52)
[2016-08-13 06:23] LABS: % BASOPHILS 0.5 % (0.0-2.0); % EOSINOPHILS 7.6 % (0.0-5.0); % LYMPHOCYTES 30.2 % (20.0-50.0); % MONOCYTES 11.4 % (2.0-10.0); % NEUTROPHILS 50.3 % (40.0-80.0); HEMATOCRIT 38.1 % (39.0-49.0); MEAN CORPUSCULAR HEMOGLOBIN 32.3 pg (26.0-30.0); MEAN PLATELET VOLUME 6.8 fl; NEUTROPHILE ABSOLUTE 2.1 Th/cmm (1.8-8.0); PLATELET COUNT 289 Th/cmm (150-400); RED BLOOD COUNT 4.01 Mil/cmm (4.30-5.70); RED CELL DISTRIBUTION WIDTH 12.3 % (11.5-20.0); WHITE BLOOD COUNT 4.1 Th/cmm (4.8-10.8)
[2016-08-13 06:46] LABS: ALB/GLOB RATIO 1.2 (1.0-1.8); ALKALINE PHOSPHATASE 107 U/L (34-104); ANION GAP 5.3 (7.0-16.0); BILIRUBIN,TOTAL 0.4 mg/dL (0.3-1.0); BUN - UREA NITROGEN 8 mg/dL (7-25); CALCIUM SERUM 8.9 mg/dL (8.6-10.3); CHLORIDE 111 mEq/L (98-107); CREATININE - SERUM 0.8 mg/dL (0.7-1.3); GLUCOSE 91 mg/dL (70-105); POTASSIUM SERUM 3.3 mEq/L (3.5-5.1); SGOT 10 U/L (13-39); SGPT/ALT 10 U/L (7-52); SODIUM SERUM 136 mEq/L (136-145)
--- NOTE | 2016-08-13 08:10 | General Progress Note ---
Subjective - Review of Systems Service Date: 08/13/16 Subjective: I want more pain medication Objective - Results Result Diagrams: 08/13/16 05:42 08/13/16 05:42 Recent Labs: Laboratory Last Values WBC 4.1 Th/cmm (4.8-10.8) L D 08/13/16 05:42 RBC 4.01 Mil/cmm (4.30-5.70) L 08/13/16 05:42 Hgb 13.0 gm/dL (13.2-17.3) L 08/13/16 05:42 Hct 38.1 % (39.0-49.0) L 08/13/16 05:42 MCV 95.0 fl (80-99) 08/13/16 05:42 MCH 32.3 pg (26.0-30.0) H 08/13/16 05:42 MCHC Differential 34.0 pg (28.0-36.0) 08/13/16 05:42 RDW 12.3 % (11.5-20.0) 08/13/16 05:42 Plt Count 289 Th/cmm (150-400) 08/13/16 05:42 MPV 6.8 fl 08/13/16 05:42 Neutrophils % 50.3 % (40.0-80.0) 08/13/16 05:42 Lymphocytes % 30.2 % (20.0-50.0) 08/13/16 05:42 Monocytes % 11.4 % (2.0-10.0) H 08/13/16 05:42 Eosinophils % 7.6 % (0.0-5.0) H 08/13/16 05:42 Basophils % 0.5 % (0.0-2.0) 08/13/16 05:42 PT 10.5 SECONDS (9.5-11.5) 08/12/16 05:31 INR 1.06 (0.5-1.4) 08/12/16 05:31 Sodium 136 mEq/L (136-145) 08/13/16 05:42 Potassium 3.3 mEq/L (3.5-5.1) L 08/13/16 05:42 Chloride 111 mEq/L (98-107) H 08/13/16 05:42 Carbon Dioxide 23.0 mEq/L (21.0-31.0) 08/13/16 05:42 Anion Gap 5.3 (7.0-16.0) L 08/13/16 05:42 BUN 8 mg/dL (7-25) 08/13/16 05:42 Creatinine 0.8 mg/dL (0.7-1.3) 08/13/16 05:42 Est GFR ( Amer) > 60.0 ml/min 08/13/16 05:42 Est GFR (Non-Af Amer) > 60.0 ml/min 08/13/16 05:42 BUN/Creatinine Ratio 10.0 08/13/16 05:42 Glucose 91 mg/dL (70-105) 08/13/16 05:42 Whole Bld Lactic Acid 1.06 mmol/L (0.60-2.00) 08/11/16 13:05 Calcium 8.9 mg/dL (8.6-10.3) 08/13/16 05:42 Total Bilirubin 0.4 mg/dL (0.3-1.0) 08/13/16 05:42 AST 10 U/L (13-39) L 08/13/16 05:42 ALT 10 U/L (7-52) 08/13/16 05:42 Alkaline Phosphatase 107 U/L (34-104) H 08/13/16 05:42 Troponin I < 0.01 ng/mL (0.01-0.05) L 08/10/16 14:20 Total Protein 6.2 gm/dL (6.0-8.3) 08/13/16 05:42 Albumin 3.4 gm/dL (4.2-5.5) L 08/13/16 05:42 Globulin 2.8 gm/dL 08/13/16 05:42 Albumin/Globulin Ratio 1.2 (1.0-1.8) 08/13/16 05:42 Amylase 38 U/L (29-103) 08/10/16 14:20 Lipase 18 U/L (11-82) 08/10/16 14:20 Urine Source RANDOM 08/10/16 15:55 Urine Color YELLOW 08/10/16 15:55 Urine Clarity CLEAR (CLEAR) 08/10/16 15:55 Urine pH 5.5 08/10/16 15:55 Ur Specific [place] 1.030 (1.005-1.030) 08/10/16 15:55 Urine Protein 100 mg/dL (NEGATIVE) H 08/10/16 15:55 Urine Glucose (UA) NEGATIVE mg/dL (NEGATIVE) 08/10/16 15:55 Urine Ketones 15 mg/dL (NEGATIVE) H 08/10/16 15:55 Urine Blood MODERATE (NEGATIVE) H 08/10/16 15:55 Urine Nitrate NEGATIVE (NEGATIVE) 08/10/16 15:55 Urine Bilirubin SMALL (NEGATIVE) H 08/10/16 15:55 Urine Urobilinogen 0.2 E.U./dL (0.2 - 1.0) 08/10/16 15:55 Ur Leukocyte Esterase NEGATIVE (NEGATIVE) 08/10/16 15:55 Urine RBC 10-25 /hpf (0-5) H 08/10/16 15:55 Urine WBC 2-5 /hpf (0-5) H 08/10/16 15:55 Ur Epithelial Cells NONE SEEN /lpf (FEW) 08/10/16 15:55 Urine Bacteria NONE SEEN /hpf (NONE SEEN) 08/10/16 15:55 - Physical Exam Vitals and I&O: Vital Signs Temp 97.9 F 08/13/16 00:00 Pulse 80 08/13/16 04:09 Resp 18 08/13/16 04:09 BP 114/64 08/13/16 00:00 Pulse Ox 95 08/13/16 04:09 Intake & Output 08/12/16 08/13/16 08/13/16 18:59 06:59 18:59 Intake Total 100 100 Output Total 300 300 Balance 100 -200 -300 Intake: Intake, IV Amount 100 100 metroNIDAZOLE 500mg/NS 100 100 100mL 500 mg In 100 ml @ 100 mls/hr IV Q8HR [facility] Rx #:[id number] Output: Urine 200 300 Stool 100 Other: # Voids 1 # Bowel Movements 1 Stool Characteristics Formed Mucoid Liquid Black Green Green Active Medications: Current Medications Albuterol Sulfate (Albuterol 2.5mg/3ml Neb Ud) 2.5 mg HHN Q8HR PRN PRN Reason: sob Stop: 10/09/16 21:50 Last Admin: 08/13/16 04:08 Dose: 2.5 mg Amlodipine Besylate (Norvasc) 10 mg PO DAILY [facility] Stop: 10/10/16 08:59 Last Admin: 08/12/16 08:09 Dose: 10 mg Hydromorphone HCl (Dilaudid) 1 mg IVP Q6HR PRN PRN Reason: Pain (Moderate) Stop: 10/09/16 21:30 Last Admin: 08/13/16 04:20 Dose: 1 mg Sodium Chloride (Nacl 0.9%) 1,000 mls @ 75 mls/hr IV .[id number] [facility] Stop: 10/09/16 21:29 Last Admin: 08/12/16 20:56 Dose: 75 mls/hr Levofloxacin (Levaquin Pb) 500 mg in 100 mls @ 100 mls/hr IV Q24HR [facility] Stop: 10/09/16 21:29 Last Admin: 08/12/16 23:55 Dose: 100 mls/hr Metronidazole (Flagyl) 500 mg in 100 mls @ 100 mls/hr IV Q8HR [facility] Stop: 10/10/16 04:59 Last Admin: 08/13/16 04:11 Dose: 100 mls/hr Propranolol HCl (Inderal) 40 mg PO BID [facility] Stop: 10/11/16 08:59 Last Admin: 08/12/16 16:07 Dose: 40 mg General: Alert, Oriented x3, Cooperative, No acute distress HEENT: Atraumatic Neck: Supple Cardiovascular: Regular rate Lungs: Clear to auscultation Abdomen: Bowel sounds, Soft, Other (Pain at palpation) Extremities: Other (No edema) Neurological: Normal gait Skin: Other (Warm and dry) Psych/Mental Status: Mental status NL - Procedures Procedures: Procedures Procedure Code Date INJECT/INFUSE NEC 99.29 10/22/14 VENOUS PUNCTURE NEC 38.99 05/12/14 Assessment/Plan - Problem List Patient Problems: All Active Problems GENERALIZED ABDOMINAL PAIN (Acute) Abdominal pain (Active) R10.9 Kidney stone (Active 02/04/13) N20.0 Abdominal pain in male (Acute) R10.9 Dyspnea (Acute) R06.00 Flank pain (Acute 11/10/14) R10.9 Flank pain, chronic (Acute) R10.9 Left flank pain (Acute) R10.9 Lower abdominal pain (Acute) R10.30 - Assessment Assessment: Pain is awake, alert, calm. Dx: Abdominal pain possible secondary to colitis, UTI, HTN, COPD. Colonoscopy shows colitis. Patient continue refering abdominal pain and requesting more and more pain medication. I belive pain is not that hard as patient is telling us. I belive patient is seeking drugs. - Plan Plan: Case will be discuss with GI and Patient will be discharge.
[2016-08-13] MEDS: Venelex 60gm Tube TP SCH (09:38)
--- NOTE | 2016-08-13 11:53 | Pathology Report ---
[id number] Collection date: 08/12/16 Surgeon: Dr. Yudith Pratt Specimen Description: Right colon biopsy. Gross Description: Received in formalin are two farmer soft tissue fragments ranging from 0.1 and 0.2 cm in greatest dimension. Totally submitted in one cassette. Microscopic Description: The histologic sections show ulcerated colon mucosa with acute and chronic inflammation present consisting of increased numbers of neutrophils and mixed with lymphocytes and plasma cells. No definite pseudomembranes are appreciated, although focal areas do show some mucinous exudate containing large collections of neutrophils. There is no evidence for atypia. Diagnosis: Acute colitis with mucosal ulceration and mucinous inflammatory exudate (right colon biopsy). Comment: The inflammatory exudate is somewhat suggested but not definitive for pseudomembranous colitis. Recommend clinical correlation and follow up with the results of microbiological studies for C. difficile toxin. These findings are discussed with Dr. Yudith Pratt on 08/13/16, the report is also sent to his office. [facility]# [id number] [facility]ITALKristopher
[2016-08-13] MEDS: Sodium Chloride 0.9% 1,000 ML IV SCH (18:00)
[2016-08-13] MEDS: Levofloxacin 500mg/100mL 500 MG/100 ML BAG IV SCH (22:02)
[2016-08-14] MEDS ORDERED: Albuterol Nebulizer 2.5mg/3mL HHN PRN (03:00)
[2016-08-14] MEDS: HYDROmorphone 1 mg/mL 1mL Syr IVP PRN ×4 (03:02→21:22)
[2016-08-14] MEDS: metroNIDAZOLE 500mg/NS 100mL 500 MG/100 ML BAG IV SCH ×3 (06:20→21:23)
[2016-08-14] MEDS: Albuterol Nebulizer 2.5mg/3mL HHN SCH ×4 (07:32→19:32)
[2016-08-14] MEDS: Ipratropium Neb 0.5 mg/2.5 mL UD HHN SCH ×4 (07:32→19:32)
[2016-08-14] MEDS: Venelex 60gm Tube TP SCH (09:00)
--- NOTE | 2016-08-14 13:02 | General Progress Note ---
Subjective - Review of Systems Service Date: 08/14/16 Subjective: I want more pain medication Objective - Results Result Diagrams: 08/13/16 05:42 08/13/16 05:42 Recent Labs: Laboratory Last Values WBC 4.1 Th/cmm (4.8-10.8) L D 08/13/16 05:42 RBC 4.01 Mil/cmm (4.30-5.70) L 08/13/16 05:42 Hgb 13.0 gm/dL (13.2-17.3) L 08/13/16 05:42 Hct 38.1 % (39.0-49.0) L 08/13/16 05:42 MCV 95.0 fl (80-99) 08/13/16 05:42 MCH 32.3 pg (26.0-30.0) H 08/13/16 05:42 MCHC Differential 34.0 pg (28.0-36.0) 08/13/16 05:42 RDW 12.3 % (11.5-20.0) 08/13/16 05:42 Plt Count 289 Th/cmm (150-400) 08/13/16 05:42 MPV 6.8 fl 08/13/16 05:42 Neutrophils % 50.3 % (40.0-80.0) 08/13/16 05:42 Lymphocytes % 30.2 % (20.0-50.0) 08/13/16 05:42 Monocytes % 11.4 % (2.0-10.0) H 08/13/16 05:42 Eosinophils % 7.6 % (0.0-5.0) H 08/13/16 05:42 Basophils % 0.5 % (0.0-2.0) 08/13/16 05:42 PT 10.5 SECONDS (9.5-11.5) 08/12/16 05:31 INR 1.06 (0.5-1.4) 08/12/16 05:31 Sodium 136 mEq/L (136-145) 08/13/16 05:42 Potassium 3.3 mEq/L (3.5-5.1) L 08/13/16 05:42 Chloride 111 mEq/L (98-107) H 08/13/16 05:42 Carbon Dioxide 23.0 mEq/L (21.0-31.0) 08/13/16 05:42 Anion Gap 5.3 (7.0-16.0) L 08/13/16 05:42 BUN 8 mg/dL (7-25) 08/13/16 05:42 Creatinine 0.8 mg/dL (0.7-1.3) 08/13/16 05:42 Est GFR ( Amer) > 60.0 ml/min 08/13/16 05:42 Est GFR (Non-Af Amer) > 60.0 ml/min 08/13/16 05:42 BUN/Creatinine Ratio 10.0 08/13/16 05:42 Glucose 91 mg/dL (70-105) 08/13/16 05:42 Whole Bld Lactic Acid 1.06 mmol/L (0.60-2.00) 08/11/16 13:05 Calcium 8.9 mg/dL (8.6-10.3) 08/13/16 05:42 Total Bilirubin 0.4 mg/dL (0.3-1.0) 08/13/16 05:42 AST 10 U/L (13-39) L 08/13/16 05:42 ALT 10 U/L (7-52) 08/13/16 05:42 Alkaline Phosphatase 107 U/L (34-104) H 08/13/16 05:42 Troponin I < 0.01 ng/mL (0.01-0.05) L 08/10/16 14:20 Total Protein 6.2 gm/dL (6.0-8.3) 08/13/16 05:42 Albumin 3.4 gm/dL (4.2-5.5) L 08/13/16 05:42 Globulin 2.8 gm/dL 08/13/16 05:42 Albumin/Globulin Ratio 1.2 (1.0-1.8) 08/13/16 05:42 Amylase 38 U/L (29-103) 08/10/16 14:20 Lipase 18 U/L (11-82) 08/10/16 14:20 Urine Source RANDOM 08/10/16 15:55 Urine Color YELLOW 08/10/16 15:55 Urine Clarity CLEAR (CLEAR) 08/10/16 15:55 Urine pH 5.5 08/10/16 15:55 Ur Specific [place] 1.030 (1.005-1.030) 08/10/16 15:55 Urine Protein 100 mg/dL (NEGATIVE) H 08/10/16 15:55 Urine Glucose (UA) NEGATIVE mg/dL (NEGATIVE) 08/10/16 15:55 Urine Ketones 15 mg/dL (NEGATIVE) H 08/10/16 15:55 Urine Blood MODERATE (NEGATIVE) H 08/10/16 15:55 Urine Nitrate NEGATIVE (NEGATIVE) 08/10/16 15:55 Urine Bilirubin SMALL (NEGATIVE) H 08/10/16 15:55 Urine Urobilinogen 0.2 E.U./dL (0.2 - 1.0) 08/10/16 15:55 Ur Leukocyte Esterase NEGATIVE (NEGATIVE) 08/10/16 15:55 Urine RBC 10-25 /hpf (0-5) H 08/10/16 15:55 Urine WBC 2-5 /hpf (0-5) H 08/10/16 15:55 Ur Epithelial Cells NONE SEEN /lpf (FEW) 08/10/16 15:55 Urine Bacteria NONE SEEN /hpf (NONE SEEN) 08/10/16 15:55 - Physical Exam Vitals and I&O: Vital Signs Temp 97.9 F 08/14/16 00:00 Pulse 80 08/14/16 11:59 Resp 18 08/14/16 11:59 BP 146/90 08/14/16 08:39 Pulse Ox 95 08/14/16 11:59 Intake & Output 08/13/16 08/14/16 08/14/16 18:59 06:59 18:59 Intake Total 1100 400 Output Total 300 Balance 800 400 Intake: Intake, IV Amount 1100 100 Sodium Chloride 0.9% 1, 1000 000 ml @ 75 mls/hr IV . [id number] [facility] Rx#:[id number] metroNIDAZOLE 500mg/NS 100 100 100mL 500 mg In 100 ml @ 100 mls/hr IV Q8HR [facility] Rx #:[id number] Oral 300 Output: Urine 300 Other: # Voids 2 # Bowel Movements 3 Stool Characteristics Mucoid Black [place] Active Medications: Current Medications Albuterol Sulfate (Albuterol 2.5mg/3ml Neb Ud) 2.5 mg HHN QIDRT [facility] Stop: 10/13/16 06:59 Last Admin: 08/14/16 11:59 Dose: Not Given Albuterol Sulfate (Albuterol 2.5mg/3ml Neb Ud) 2.5 mg HHN Q8HR PRN PRN Reason: Shortness of Breath Stop: 10/13/16 02:59 Amlodipine Besylate (Norvasc) 10 mg PO DAILY [facility] Stop: 10/10/16 08:59 Last Admin: 08/14/16 08:39 Dose: 10 mg Hydromorphone HCl (Dilaudid) 1 mg IVP Q6HR PRN PRN Reason: Pain (Moderate) Stop: 10/09/16 21:30 Last Admin: 08/14/16 08:36 Dose: 1 mg Sodium Chloride (Nacl 0.9%) 1,000 mls @ 75 mls/hr IV .[id number] [facility] Stop: 10/09/16 21:29 Last Admin: 08/13/16 18:00 Dose: 75 mls/hr Levofloxacin (Levaquin Pb) 500 mg in 100 mls @ 100 mls/hr IV Q24HR [facility] Stop: 10/09/16 21:29 Last Admin: 08/13/16 22:02 Dose: 100 mls/hr Metronidazole (Flagyl) 500 mg in 100 mls @ 100 mls/hr IV Q8HR [facility] Stop: 10/10/16 04:59 Last Admin: 08/14/16 06:20 Dose: 100 mls/hr Ipratropium [place] (Atrovent Neb 0.5mg/2.5ml) 0.5 mg HHN QIDRT [facility] Stop: 10/13/16 06:59 Last Admin: 08/14/16 11:59 Dose: Not Given Propranolol HCl (Inderal) 40 mg PO BID [facility] Stop: 10/11/16 08:59 Last Admin: 08/14/16 08:38 Dose: 40 mg General: Alert, Oriented x3, Cooperative HEENT: Atraumatic Neck: Supple Cardiovascular: Regular rate Lungs: Clear to auscultation Abdomen: Bowel sounds, Soft Extremities: Other (No edema) Neurological: Normal gait Skin: Other (Warm and dry) Psych/Mental Status: Mental status NL - Procedures Procedures: Procedures Procedure Code Date INJECT/INFUSE NEC 99.29 10/22/14 VENOUS PUNCTURE NEC 38.99 05/12/14 Assessment/Plan - Problem List Patient Problems: All Active Problems GENERALIZED ABDOMINAL PAIN (Acute) Abdominal pain (Active) R10.9 Kidney stone (Active 02/04/13) N20.0 Abdominal pain in male (Acute) R10.9 Dyspnea (Acute) R06.00 Flank pain (Acute 11/10/14) R10.9 Flank pain, chronic (Acute) R10.9 Left flank pain (Acute) R10.9 Lower abdominal pain (Acute) R10.30 - Assessment Assessment: Pain is awake, alert, calm. Dx: Abdominal pain possible secondary to colitis, UTI, HTN, COPD. Biopsy shows Pseudomenbranose colitis. Patient continue refering abdominal pain and requesting more and more pain medication. I belive pain is not that hard as patient is telling us. Case discussed with GI and more test will be done - Plan Plan: Will continue to monitor
[2016-08-14] MEDS: Sodium Chloride 0.9% 1,000 ML IV SCH (13:34)
--- NOTE | 2016-08-14 15:34 | Diagnostic Imaging Report ---
Radionuclide biliary scan (HIDA scan) HISTORY: Cholelithiasis, pain 5.2 mCi technetium labeled biliary age and was used in the exam. There is normal hepatic uptake and clearance. There is normal excretion of nuclide into the gallbladder, common bile duct, and small bowel. IMPRESSION: Negative examination
[2016-08-14] MEDS: Levofloxacin 500mg/100mL 500 MG/100 ML BAG IV SCH (22:40)
[2016-08-15] MEDS: HYDROmorphone 1 mg/mL 1mL Syr IVP PRN ×3 (03:55→15:11)
[2016-08-15] MEDS: metroNIDAZOLE 500mg/NS 100mL 500 MG/100 ML BAG IV SCH ×2 (05:34→12:15)
[2016-08-15] MEDS: Albuterol Nebulizer 2.5mg/3mL HHN SCH ×3 (07:06→15:05)
[2016-08-15] MEDS: Ipratropium Neb 0.5 mg/2.5 mL UD HHN SCH ×3 (07:06→15:05)
[2016-08-15 07:15] LABS: % BASOPHILS 0.7 % (0.0-2.0); % EOSINOPHILS 7.7 % (0.0-5.0); % LYMPHOCYTES 33.9 % (20.0-50.0); % MONOCYTES 11.7 % (2.0-10.0); HEMATOCRIT 41.4 % (39.0-49.0); HEMOGLOBIN 13.9 gm/dL (13.2-17.3); MEAN CELL VOLUME 94.1 fl (80-99); MEAN CORPUSCULAR HEMOGLOBIN 31.5 pg (26.0-30.0); MEAN CORPUSCULAR HGB CONC 33.5 pg (28.0-36.0); MEAN PLATELET VOLUME 6.8 fl; NEUTROPHILE ABSOLUTE 1.8 Th/cmm (1.8-8.0); PLATELET COUNT 265 Th/cmm (150-400); RED BLOOD COUNT 4.41 Mil/cmm (4.30-5.70); RED CELL DISTRIBUTION WIDTH 12.7 % (11.5-20.0)
[2016-08-15 07:28] LABS: ALB/GLOB RATIO 1.3 (1.0-1.8); ALKALINE PHOSPHATASE 104 U/L (34-104); ANION GAP 6.8 (7.0-16.0); BILIRUBIN,TOTAL 0.4 mg/dL (0.3-1.0); BUN - UREA NITROGEN 8 mg/dL (7-25); BUN/CREATININE RATIO 11.4; CALCIUM SERUM 9.3 mg/dL (8.6-10.3); CARBON DIOXIDE 24.9 mEq/L (21.0-31.0); CHLORIDE 109 mEq/L (98-107); CREATININE - SERUM 0.7 mg/dL (0.7-1.3); GLUCOSE 91 mg/dL (70-105); POTASSIUM SERUM 3.7 mEq/L (3.5-5.1); SGOT 13 U/L (13-39); SGPT/ALT 8 U/L (7-52); SODIUM SERUM 137 mEq/L (136-145)
[2016-08-15] MEDS: Venelex 60gm Tube TP SCH (09:48)
[2016-08-15] MEDS: Sodium Chloride 0.9% 1,000 ML IV SCH (09:50)
--- NOTE | 2016-08-15 13:10 | General Progress Note ---
Subjective - Review of Systems Service Date: 08/15/16 Subjective: I want more pain medication Objective - Results Result Diagrams: 08/15/16 07:00 08/15/16 07:00 Recent Labs: Laboratory Last Values WBC 4.0 Th/cmm (4.8-10.8) L 08/15/16 07:00 RBC 4.41 Mil/cmm (4.30-5.70) 08/15/16 07:00 Hgb 13.9 gm/dL (13.2-17.3) 08/15/16 07:00 Hct 41.4 % (39.0-49.0) 08/15/16 07:00 MCV 94.1 fl (80-99) 08/15/16 07:00 MCH 31.5 pg (26.0-30.0) H 08/15/16 07:00 MCHC Differential 33.5 pg (28.0-36.0) 08/15/16 07:00 RDW 12.7 % (11.5-20.0) 08/15/16 07:00 Plt Count 265 Th/cmm (150-400) 08/15/16 07:00 MPV 6.8 fl 08/15/16 07:00 Neutrophils % 46.0 % (40.0-80.0) 08/15/16 07:00 Lymphocytes % 33.9 % (20.0-50.0) 08/15/16 07:00 Monocytes % 11.7 % (2.0-10.0) H 08/15/16 07:00 Eosinophils % 7.7 % (0.0-5.0) H 08/15/16 07:00 Basophils % 0.7 % (0.0-2.0) 08/15/16 07:00 PT 10.5 SECONDS (9.5-11.5) 08/12/16 05:31 INR 1.06 (0.5-1.4) 08/12/16 05:31 Sodium 137 mEq/L (136-145) 08/15/16 07:00 Potassium 3.7 mEq/L (3.5-5.1) 08/15/16 07:00 Chloride 109 mEq/L (98-107) H 08/15/16 07:00 Carbon Dioxide 24.9 mEq/L (21.0-31.0) 08/15/16 07:00 Anion Gap 6.8 (7.0-16.0) L 08/15/16 07:00 BUN 8 mg/dL (7-25) 08/15/16 07:00 Creatinine 0.7 mg/dL (0.7-1.3) 08/15/16 07:00 Est GFR ( Amer) > 60.0 ml/min 08/15/16 07:00 Est GFR (Non-Af Amer) > 60.0 ml/min 08/15/16 07:00 BUN/Creatinine Ratio 11.4 08/15/16 07:00 Glucose 91 mg/dL (70-105) 08/15/16 07:00 Whole Bld Lactic Acid 1.06 mmol/L (0.60-2.00) 08/11/16 13:05 Calcium 9.3 mg/dL (8.6-10.3) 08/15/16 07:00 Total Bilirubin 0.4 mg/dL (0.3-1.0) 08/15/16 07:00 AST 13 U/L (13-39) 08/15/16 07:00 ALT 8 U/L (7-52) 08/15/16 07:00 Alkaline Phosphatase 104 U/L (34-104) 08/15/16 07:00 Troponin I < 0.01 ng/mL (0.01-0.05) L 08/10/16 14:20 Total Protein 6.5 gm/dL (6.0-8.3) 08/15/16 07:00 Albumin 3.7 gm/dL (4.2-5.5) L 08/15/16 07:00 Globulin 2.8 gm/dL 08/15/16 07:00 Albumin/Globulin Ratio 1.3 (1.0-1.8) 08/15/16 07:00 Amylase 38 U/L (29-103) 08/10/16 14:20 Lipase 18 U/L (11-82) 08/10/16 14:20 Urine Source RANDOM 08/10/16 15:55 Urine Color YELLOW 08/10/16 15:55 Urine Clarity CLEAR (CLEAR) 08/10/16 15:55 Urine pH 5.5 08/10/16 15:55 Ur Specific Cisco 1.030 (1.005-1.030) 08/10/16 15:55 Urine Protein 100 mg/dL (NEGATIVE) H 08/10/16 15:55 Urine Glucose (UA) NEGATIVE mg/dL (NEGATIVE) 08/10/16 15:55 Urine Ketones 15 mg/dL (NEGATIVE) H 08/10/16 15:55 Urine Blood MODERATE (NEGATIVE) H 08/10/16 15:55 Urine Nitrate NEGATIVE (NEGATIVE) 08/10/16 15:55 Urine Bilirubin SMALL (NEGATIVE) H 08/10/16 15:55 Urine Urobilinogen 0.2 E.U./dL (0.2 - 1.0) 08/10/16 15:55 Ur Leukocyte Esterase NEGATIVE (NEGATIVE) 08/10/16 15:55 Urine RBC 10-25 /hpf (0-5) H 08/10/16 15:55 Urine WBC 2-5 /hpf (0-5) H 08/10/16 15:55 Ur Epithelial Cells NONE SEEN /lpf (FEW) 08/10/16 15:55 Urine Bacteria NONE SEEN /hpf (NONE SEEN) 08/10/16 15:55 - Physical Exam Vitals and I&O: Vital Signs Temp 97.9 F 08/15/16 08:26 Pulse 80 08/15/16 11:18 Resp 20 08/15/16 11:18 BP 124/100 08/15/16 08:26 Pulse Ox 96 08/15/16 11:18 Intake & Output 08/14/16 08/15/16 08/15/16 18:59 06:59 18:59 Intake Total 2500 1550 Output Total 2 Balance 2500 1548 Intake: Intake, IV Amount 1200 1300 Levofloxacin 500mg/100mL 100 500 mg In 100 ml @ 100 mls/hr IV Q24HR JORGE Rx#: [id number] Sodium Chloride 0.9% 1, 1000 1000 000 ml @ 75 mls/hr IV . [id number] JORGE Rx#:[id number] metroNIDAZOLE 500mg/NS 200 200 100mL 500 mg In 100 ml @ 100 mls/hr IV Q8HR JORGE Rx #:[id number] Oral 1200 250 Other 100 Output: Urine 2 Other: # Voids 4 # Bowel Movements 1 0 Stool Characteristics Liquid Liquid Active Medications: Current Medications Albuterol Sulfate (Albuterol 2.5mg/3ml Neb Ud) 2.5 mg HHN QIDRT JORGE Stop: 10/13/16 06:59 Last Admin: 08/15/16 11:18 Dose: 2.5 mg Albuterol Sulfate (Albuterol 2.5mg/3ml Neb Ud) 2.5 mg HHN Q8HR PRN PRN Reason: Shortness of Breath Stop: 10/13/16 02:59 Amlodipine Besylate (Norvasc) 10 mg PO DAILY [facility] Stop: 10/10/16 08:59 Last Admin: 08/15/16 08:15 Dose: 10 mg Hydromorphone HCl (Dilaudid) 1 mg IVP Q6HR PRN PRN Reason: Pain (Moderate) Stop: 10/09/16 21:30 Last Admin: 08/15/16 09:43 Dose: 1 mg Sodium Chloride (Nacl 0.9%) 1,000 mls @ 75 mls/hr IV .[id number] [facility] Stop: 10/09/16 21:29 Last Admin: 08/15/16 09:50 Dose: 75 mls/hr Levofloxacin (Levaquin Pb) 500 mg in 100 mls @ 100 mls/hr IV Q24HR [facility] Stop: 10/09/16 21:29 Last Infusion: 08/14/16 23:40 Dose: Infused Metronidazole (Flagyl) 500 mg in 100 mls @ 100 mls/hr IV Q8HR [facility] Stop: 10/10/16 04:59 Last Admin: 08/15/16 12:15 Dose: 100 mls/hr Ipratropium [place] (Atrovent Neb 0.5mg/2.5ml) 0.5 mg HHN QIDRT [facility] Stop: 10/13/16 06:59 Last Admin: 08/15/16 11:18 Dose: 0.5 mg Propranolol HCl (Inderal) 40 mg PO BID [facility] Stop: 10/11/16 08:59 Last Admin: 08/15/16 08:16 Dose: 40 mg General: Alert, Oriented x3, Cooperative, No acute distress HEENT: Atraumatic, PERRLA Neck: Supple Cardiovascular: Regular rate Lungs: Clear to auscultation Abdomen: Bowel sounds, Soft, Other (Non tender) Extremities: Other (No edema) Neurological: Normal gait Skin: Other (Warm and dry) Psych/Mental Status: Mental status NL - Procedures Procedures: Procedures Procedure Code Date COLONOSCOPY AND BIOPSY 39863 08/10/16 EXCISION OF RIGHT LARGE INTESTINE, ENDO, DIAGN [id number] 08/10/16 INJECT/INFUSE NEC 99.29 10/22/14 VENOUS PUNCTURE NEC 38.99 05/12/14 Assessment/Plan - Problem List Patient Problems: All Active Problems GENERALIZED ABDOMINAL PAIN (Acute) Abdominal pain (Active) R10.9 Kidney stone (Active 02/04/13) N20.0 Abdominal pain in male (Acute) R10.9 Dyspnea (Acute) R06.00 Flank pain (Acute 11/10/14) R10.9 Flank pain, chronic (Acute) R10.9 Left flank pain (Acute) R10.9 Lower abdominal pain (Acute) R10.30 - Assessment Assessment: Pain is awake, alert, calm. Dx: Abdominal pain possible secondary to colitis, UTI, HTN, COPD. Biopsy shows Pseudomenbranose colitis. HIDA scan normal, all labs are normal. Patient continue refering abdominal pain and requesting more and more pain medication. I belive pain is not that hard as patient is telling us. Patient will be discharge - Plan Plan: Patient will be discharge
[2016-08-15] MEDS ORDERED: HYDROmorphone 1 mg/mL 1mL Syr IVP STA (18:50)
--- NOTE | 2016-08-28 20:42 | Discharge Summary ---
HISTORY OF PRESENT ILLNESS: This is the case of a white male who came to ER secondary to abdominal pain. Pain was 8-10 and reason why patient was admitted for evaluation and treatment. HOSPITAL COURSE AND TREATMENT: This patient was admitted in the medical surgical floor. Abdominal CT was done and shows cholelithiasis and colitis, hepatomegaly and HIDA scan was negative. The patient was started on IV normal saline, Levaquin, metronidazole and Dilaudid for pain control, but this treatment and after few days in the hospital case was discussed with and Dr. Terence VINES, a decision was made, the patient already received the maximum benefit of hospitalization and he could be sent home to continue treatment with primary care physician. At the moment of the discharge, the patient was awake, alert, in no acute distress. 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 DISPOSITION: The patient is sent home. IMPRESSION: 1. Cholelithiasis. 2. Colitis. 3. Hepatomegaly. JOB# [id number]
== END 2016-08-15 19:10 | DRG 391 ==
LOC: ER 13:47 → MSI 16:24
PROVIDERS: ADMIT General Practice; ATTEND General Practice
PROC: 0DBK8ZX Excision of Ascending Colon, Via Natural or Artificial Opening Endoscopic, Diagnostic (ICD-10-PCS; principal; 2016-08-12)
DX: K52.9 Noninfective gastroenteritis and colitis, unspecified (principal); J18.9 Pneumonia, unspecified organism; N39.0 Urinary tract infection, site not specified; J44.9 Chronic obstructive pulmonary disease, unspecified; I10 Essential (primary) hypertension; K52.89 Other specified noninfective gastroenteritis and colitis; M47.816 Spondylosis without myelopathy or radiculopathy, lumbar region; J45.909 Unspecified asthma, uncomplicated; M19.90 Unspecified osteoarthritis, unspecified site; F17.210 Nicotine dependence, cigarettes, uncomplicated; Z88.5 Allergy status to narcotic agent; Z88.8 Allergy status to other drugs, medicaments and biological substances; Z98.890 Other specified postprocedural states
CPT/HCPCS: 36415-UA; 71010-TC; 76700-TC; 78226-TC; 80053-TC; 81001-TC; 82150-TC; 83605; 83690-TC; 84484-TC; 85025-TC; 85610-TC; 87046-90; 87209-90; 87230-TC; 88305-90; 90779; 90799; 93005; 94760; 96374; 96375; 96376; A9537; J0696; J1170; J1956; J2405; J2704; J7030; J7613; Z7506; Z7610

== ENCOUNTER 2016-09-01 22:27 | Emergency (ER) | payer MEDICARE, OTHER ==
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
== END 2016-09-01 23:10 | disposition home or self-care (01) ==
LOC: ER 22:27
DX: M54.2 Cervicalgia (principal); M54.5 Low back pain; F17.200 Nicotine dependence, unspecified, uncomplicated; Z88.6 Allergy status to analgesic agent; Z88.5 Allergy status to narcotic agent; V89.2XXA Person injured in unspecified motor-vehicle accident, traffic, initial encounter; Y93.89 Activity, other specified; Y92.488 Other paved roadways as the place of occurrence of the external cause; Y99.8 Other external cause status
CPT/HCPCS: Z7502

== ENCOUNTER 2016-09-12 23:31 | Emergency (ER) | payer MEDICARE, OTHER ==
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
== END 2016-09-12 23:52 | disposition left against medical advice (07) ==
LOC: ER 23:31
DX: R10.9 Unspecified abdominal pain (principal); I10 Essential (primary) hypertension; Z88.6 Allergy status to analgesic agent; Z88.8 Allergy status to other drugs, medicaments and biological substances
CPT/HCPCS: Z7502

== ENCOUNTER 2016-10-24 12:21 | Emergency (ER) | payer MEDICARE, OTHER ==
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
[2016-10-24] MEDS ORDERED: HYDROmorphone 1 mg/mL 1mL Syr ONE ×2 (13:05→14:13)
[2016-10-24] MEDS: Sodium Chloride 0.9% 2,000 ML IV ONE (13:11)
[2016-10-24] MEDS: HYDROmorphone 1 mg/mL 1mL Syr IVP STA (13:12)
[2016-10-24 14:13] LABS: % BASOPHILS 0.4 % (0.0-2.0); % EOSINOPHILS 0.8 % (0.0-5.0); % LYMPHOCYTES 18.8 % (20.0-50.0); % MONOCYTES 11.4 % (2.0-10.0); % NEUTROPHILS 68.6 % (40.0-80.0); HEMATOCRIT 37.5 % (39.0-49.0); HEMOGLOBIN 12.6 gm/dL (13.2-17.3); MEAN CELL VOLUME 93.6 fl (80-99); MEAN CORPUSCULAR HEMOGLOBIN 31.4 pg (26.0-30.0); MEAN CORPUSCULAR HGB CONC 33.6 pg (28.0-36.0); NEUTROPHILE ABSOLUTE 2.8 Th/cmm (1.8-8.0); PLATELET COUNT 239 Th/cmm (150-400); RED CELL DISTRIBUTION WIDTH 12.9 % (11.5-20.0); WHITE BLOOD COUNT 3.9 Th/cmm (4.8-10.8)
[2016-10-24] MEDS: HYDROmorphone 2 mg/mL 1mL Vial IVP STA (14:15)
[2016-10-24 14:33] LABS: ALB/GLOB RATIO 1.6 (1.0-1.8); ALKALINE PHOSPHATASE 170 U/L (34-104); ANION GAP 10.9 (7.0-16.0); BILIRUBIN,TOTAL 0.6 mg/dL (0.3-1.0); BUN - UREA NITROGEN 8 mg/dL (7-25); CALCIUM SERUM 9.3 mg/dL (8.6-10.3); CARBON DIOXIDE 22.5 mEq/L (21.0-31.0); CHLORIDE 107 mEq/L (98-107); CREATININE - SERUM 0.8 mg/dL (0.7-1.3); GLUCOSE 88 mg/dL (70-105); POTASSIUM SERUM 3.4 mEq/L (3.5-5.1); SGOT 59 U/L (13-39); SGPT/ALT 37 U/L (7-52); SODIUM SERUM 137 mEq/L (136-145)
[2016-10-24 15:03] LABS: AMYLASE SERUM 27 U/L (29-103); LIPASE 16 U/L (11-82)
[2016-10-24 15:12] LABS: URINE BILIRUBIN NEGATIVE (NEGATIVE); URINE COLOR YELLOW; URINE GLUCOSE (UA) NEGATIVE (NEGATIVE); URINE KETONE >=80 mg/dL (NEGATIVE)
[2016-10-24 15:13] LABS: URINE BLOOD NEGATIVE (NEGATIVE); URINE PH 6.5; URINE PROTEIN NEGATIVE (NEGATIVE); URINE UROBILINOGEN 0.2 E.U./dL (0.2 - 1.0)
[2016-10-24 15:14] LABS: URINE BACTERIA NONE SEEN /hpf (NONE SEEN); URINE EPITHELIAL CELLS NONE SEEN /lpf (FEW); URINE RBC NONE SEEN /hpf (0-5); URINE WBC NONE SEEN /hpf (0-5)
--- NOTE | 2016-10-25 09:36 | Diagnostic Imaging Report ---
CT scan abdomen and pelvis without intravenous contrast HISTORY: Pain, vomiting Total DLP equals 357 CTDI equals 7.9 Axial sections were obtained from the xiphoid process down to the pubic symphysis. The exam is compared with the prior study of August 10, 2016. The liver exhibits a homogeneous parenchyma. No focal lesions. Surgical clips are seen in the kierra hepatis region consistent with a prior cholecystectomy. Spleen appears normal. No focal abnormality seen in the region of the pancreas. There are 2 5-mm nonobstructing right renal calculi unchanged from the prior exam. A punctate nonobstructing left renal calculus is also noted. The exam of the pelvis demonstrates preservation of normal fat planes. Mild to moderate enlargement of the prostate gland noted. No other abnormal masses or abnormal fluid collections. Degenerative changes seen within the spine. IMPRESSION 1. Small bilateral nonobstructing renal calculi 2. Findings consistent with a prior cholecystectomy 3. Mild to moderate enlargement of the prostate 4. Degenerative changes within the spine
== END 2016-10-24 16:35 | disposition home or self-care (01) ==
LOC: ER 12:21
DX: G89.18 Other acute postprocedural pain (principal); R10.11 Right upper quadrant pain; R10.12 Left upper quadrant pain; I10 Essential (primary) hypertension; J45.909 Unspecified asthma, uncomplicated; J44.9 Chronic obstructive pulmonary disease, unspecified; Z88.6 Allergy status to analgesic agent; Z90.6 Acquired absence of other parts of urinary tract
CPT/HCPCS: 36415-UA; 80053-TC; 81001-TC; 82150-TC; 83605; 83690-TC; 85025-TC; 96374; 96375; 96376; J1170; J2405; J7030

== ENCOUNTER 2016-10-27 11:36 | Emergency (ER) | payer MEDICARE, OTHER ==
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
[2016-10-27] MEDS ORDERED: Dexamethasone Sodium Phos 4 mg/mL Vial IM STA (11:43)
[2016-10-27] MEDS ORDERED: Ipratropium Neb 0.5 mg/2.5 mL UD HHN STA (11:44)
[2016-10-27] MEDS ORDERED: Albuterol Nebulizer 2.5mg/3mL HHN STA (11:44)
[2016-10-27] MEDS ORDERED: Albuterol Nebulizer 2.5mg/3mL HHN ONE ×2 (11:47→11:53)
[2016-10-27] MEDS ORDERED: Ipratropium Neb 0.5 mg/2.5 mL UD HHN ONE (11:47)
[2016-10-27] MEDS ORDERED: Dexamethasone Sodium Phos 10 mg/mL PF Vial ONE (11:48)
--- NOTE | 2016-10-27 12:14 | Diagnostic Imaging Report ---
CHEST X-RAY: AP view INDICATION: Shortness of breath COMPARISON: Chest x-ray 08/11/2016 FINDINGS: Hyperinflated lungs are seen. No focal consolidation or effusions. Heart size is normal. Degenerative changes of spine are seen with scoliosis. Surgical krystle are seen along the bilateral axillary regions and right upper quadrant.. IMPRESSION: Hyperinflated lungs and possible COPD. No focal consolidation identified. Postsurgical changes.
== END 2016-10-27 12:09 | disposition home or self-care (01) ==
LOC: ER 11:36
DX: J20.9 Acute bronchitis, unspecified (principal); F17.200 Nicotine dependence, unspecified, uncomplicated; G89.4 Chronic pain syndrome; Z88.6 Allergy status to analgesic agent
CPT/HCPCS: 71010-TC; 90779; 94640; J7613; Z7502

== ENCOUNTER 2016-10-30 16:30 | Emergency (ER) | payer MEDICARE, OTHER ==
[2016-10-30 16:49] VITALS: BP 158/100
[2016-10-30] MEDS ORDERED: Sodium Chloride 0.9% 1,000 ML IV ONE (17:07)
[2016-10-30] MEDS ORDERED: HYDROmorphone 1 mg/mL 1mL Syr IVP STA ×2 (17:08→19:09)
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
[2016-10-30 17:35] LABS: URINE COLOR YELLOW
[2016-10-30 17:36] LABS: URINE BACTERIA OCCASIONAL /hpf (NONE SEEN); URINE BILIRUBIN NEGATIVE (NEGATIVE); URINE BLOOD TRACE (NEGATIVE); URINE EPITHELIAL CELLS RARE /lpf (FEW); URINE GLUCOSE (UA) NEGATIVE (NEGATIVE); URINE KETONE NEGATIVE (NEGATIVE); URINE PH 7.5; URINE PROTEIN NEGATIVE (NEGATIVE); URINE RBC 0-2 /hpf (0-5); URINE UROBILINOGEN 0.2 E.U./dL (0.2 - 1.0); URINE WBC 0-2 /hpf (0-5)
[2016-10-30 17:47] LABS: % BASOPHILS 0.4 % (0.0-2.0); % EOSINOPHILS 0.5 % (0.0-5.0); % LYMPHOCYTES 28.2 % (20.0-50.0); % MONOCYTES 8.9 % (2.0-10.0); HEMOGLOBIN 11.7 gm/dL (13.2-17.3); MEAN CELL VOLUME 92.9 fl (80-99); MEAN CORPUSCULAR HEMOGLOBIN 32.7 pg (26.0-30.0); MEAN CORPUSCULAR HGB CONC 35.2 pg (28.0-36.0); MEAN PLATELET VOLUME 6.7 fl; NEUTROPHILE ABSOLUTE 3.2 Th/cmm (1.8-8.0); PLATELET COUNT 214 Th/cmm (150-400); RED BLOOD COUNT 3.59 Mil/cmm (4.30-5.70); RED CELL DISTRIBUTION WIDTH 13.8 % (11.5-20.0)
[2016-10-30 17:50] LABS: HEMATOCRIT 33.4 % (39.0-49.0); WHITE BLOOD COUNT 5.2 Th/cmm (4.8-10.8)
[2016-10-30 18:01] LABS: ALB/GLOB RATIO 1.7 (1.0-1.8); ALKALINE PHOSPHATASE 104 U/L (34-104); AMYLASE SERUM 31 U/L (29-103); ANION GAP 5.7 (7.0-16.0); BILIRUBIN,TOTAL 0.2 mg/dL (0.3-1.0); BUN - UREA NITROGEN 15 mg/dL (7-25); BUN/CREATININE RATIO 18.8; CARBON DIOXIDE 26.9 mEq/L (21.0-31.0); CHLORIDE 110 mEq/L (98-107); CREATININE - SERUM 0.8 mg/dL (0.7-1.3); GLUCOSE 86 mg/dL (70-105); LIPASE 22 U/L (11-82); POTASSIUM SERUM 3.6 mEq/L (3.5-5.1); SGOT 12 U/L (13-39); SGPT/ALT 17 U/L (7-52); SODIUM SERUM 139 mEq/L (136-145)
[2016-10-30] MEDS ORDERED: HYDROmorphone 1 mg/mL 1mL Syr ONE (19:23)
[2016-10-30] MEDS ORDERED: HYDROmorphone 2 mg/mL 1mL Vial ONE (19:51)
== END 2016-10-30 19:47 | disposition home or self-care (01) ==
LOC: ER 16:30
DX: K52.9 Noninfective gastroenteritis and colitis, unspecified (principal); I10 Essential (primary) hypertension; J45.909 Unspecified asthma, uncomplicated; J44.9 Chronic obstructive pulmonary disease, unspecified; Z88.6 Allergy status to analgesic agent; Z90.49 Acquired absence of other specified parts of digestive tract; Z87.891 Personal history of nicotine dependence
CPT/HCPCS: 99285; 96374; 96361; 96375; 36415; 85025; 81001; 82150; 83690; 80053; 96372; J2405 ×2; J1170; J7030

== ENCOUNTER 2016-11-02 13:03 | Emergency (ER) | payer MEDICARE, OTHER ==
[2016-11-02] MEDS ORDERED: Dicyclomine 10 mg/mL 2mL Amp IM STA (13:12)
[2016-11-02] MEDS ORDERED: Dicyclomine 10 mg/mL 2mL Amp IM ONE (13:23)
[2016-11-02 13:37] LABS: % BASOPHILS 0.3 % (0.0-2.0); % EOSINOPHILS 2.3 % (0.0-5.0); % LYMPHOCYTES 26.1 % (20.0-50.0); % MONOCYTES 6.2 % (2.0-10.0); % NEUTROPHILS 65.1 % (40.0-80.0); HEMOGLOBIN 13.5 gm/dL (13.2-17.3); MEAN CELL VOLUME 92.5 fl (80-99); MEAN CORPUSCULAR HEMOGLOBIN 32.5 pg (26.0-30.0); MEAN CORPUSCULAR HGB CONC 35.1 pg (28.0-36.0); MEAN PLATELET VOLUME 7.2 fl; NEUTROPHILE ABSOLUTE 4.4 Th/cmm (1.8-8.0); RED BLOOD COUNT 4.16 Mil/cmm (4.30-5.70); RED CELL DISTRIBUTION WIDTH 13.5 % (11.5-20.0)
[2016-11-02 13:47] LABS: HEMATOCRIT 38.5 % (39.0-49.0); PLATELET COUNT 275 Th/cmm (150-400); WHITE BLOOD COUNT 6.8 Th/cmm (4.8-10.8)
[2016-11-02 13:48] LABS: ALB/GLOB RATIO 1.7 (1.0-1.8); ALKALINE PHOSPHATASE 123 U/L (34-104); AMYLASE SERUM 40 U/L (29-103); ANION GAP 13.7 (7.0-16.0); BILIRUBIN,TOTAL 0.6 mg/dL (0.3-1.0); BUN - UREA NITROGEN 12 mg/dL (7-25); BUN/CREATININE RATIO 17.1; CALCIUM SERUM 9.3 mg/dL (8.6-10.3); CHLORIDE 104 mEq/L (98-107); CREATININE - SERUM 0.7 mg/dL (0.7-1.3); GLUCOSE 99 mg/dL (70-105); POTASSIUM SERUM 3.7 mEq/L (3.5-5.1); SGOT 18 U/L (13-39); SGPT/ALT 18 U/L (7-52); SODIUM SERUM 138 mEq/L (136-145)
[2016-11-02 13:50] LABS: CHOLESTEROL 197 mg/dL (<200); INR 0.98 (0.5-1.4); PROTHROMBIN TIME (TEST) 10.2 SECONDS (9.5-11.5); TRIGLYCERIDES 192 mg/dL (<150)
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
[2016-11-02 14:15] LABS: URINE BILIRUBIN NEGATIVE (NEGATIVE); URINE BLOOD TRACE (NEGATIVE); URINE COLOR YELLOW; URINE GLUCOSE (UA) NEGATIVE (NEGATIVE); URINE KETONE NEGATIVE (NEGATIVE)
[2016-11-02 14:16] LABS: URINE BACTERIA NONE SEEN /hpf (NONE SEEN); URINE EPITHELIAL CELLS OCCASIONAL /lpf (FEW); URINE PH 7.5; URINE PROTEIN NEGATIVE (NEGATIVE); URINE RBC 0-2 /hpf (0-5); URINE UROBILINOGEN 0.2 E.U./dL (0.2 - 1.0); URINE WBC 0-2 /hpf (0-5)
[2016-11-02 14:20] LABS: AMPHETAMINE URINE NEGATIVE (NEGATIVE); BARBITURATES URINE NEGATIVE (NEGATIVE); METHADONE URINE NEGATIVE (NEGATIVE)
--- NOTE | 2016-11-02 15:30 | Diagnostic Imaging Report ---
Renal ultrasound HISTORY: Pain The right kidney is normal in size (11.6 x 4.3 x 6.2 cm). A 1.0 cm echogenic density is noted in the upper cortical medullary junction region. This may represent a calculus. No hydronephrosis. The left kidney is normal in size (10.4 x 5.9 x 4.3 cm). A 1.2 cm sonolucent lesion seen in the upper pole consistent with a cyst. No hydronephrosis. No abnormalities are seen in the region of the urinary bladder. IMPRESSION: 1. Small echogenic density in the upper portion of the right kidney. This may represent a calculus. No hydronephrosis 2. Findings consistent with a small left renal cyst
== END 2016-11-02 14:55 | disposition home or self-care (01) ==
LOC: ER 13:03
DX: R10.9 Unspecified abdominal pain (principal); R31.9 Hematuria, unspecified; F19.10 Other psychoactive substance abuse, uncomplicated; I10 Essential (primary) hypertension; J44.9 Chronic obstructive pulmonary disease, unspecified; J45.909 Unspecified asthma, uncomplicated; F17.200 Nicotine dependence, unspecified, uncomplicated; Z88.6 Allergy status to analgesic agent; Z90.49 Acquired absence of other specified parts of digestive tract
CPT/HCPCS: 36415-UA; 76770-TC; 80053-TC; 80061-TC; 80307; 81001-TC; 82150-TC; 84443-TC; 84484-TC; 85025-TC; 85610-TC; 85730-TC; 86592-TC; J0500

== ENCOUNTER 2016-11-03 17:43 | Emergency (ER) | payer MEDICARE, OTHER ==
--- NOTE | 2016-11-03 18:00 | ED Physician Chart ---
Chief Complaint/HPI - Patient Information Date Seen:: 11/03/16 Time Seen:: 17:45 Chief Complaint:: Abdominal Pain History of Present Illness:: onset x one month of intermittent, diffuse, crampy Abdominal Pain with diarrhea x 2 days; denies A/N/V/C, fever, chills, C/P, dyspnea Allergies:: Allergies Allergy/AdvReac Type Severity Reaction Status Date / Time ketorolac tromethamine Allergy Verified 11/02/16 13:09 [From Toradol] morphine Allergy Verified 11/02/16 13:09 Historian:: Patient, Medical Records Review:: Nurse's Note Reviewed, Old Chart Reviewed Review of Systems - Review of Systems General/Constitutional: Fever, No fever, Chills, No chills, No weight loss, No weakness, No diaphoresis, No edema, No loss of appetite Skin: No skin lesions, No rash, No bruising Head: No headache, No light-headedness Eyes: No loss of vision, No pain, No diplopia ENT: No earache, No nasal drainage, No sore throat, No tinnitus Neck: No neck pain, No swelling, No thyromegaly, No stiffness, No mass noted Cardio Vascular: No chest pain, No palpitations, No PND, No orthopnea, No edema Pulmonary: No SOB, No cough, No sputum, No wheezing GI: Nausea, No nausea, Vomiting, No vomiting, Diarrhea, No diarrhea, Pain, No pain, No melena, No hematochezia, No constipation, No hematemesis G/U: No dysuria, No frequency, No hematuria Musculoskeletal: No bone or joint pain, No back pain, No muscle pain Endocrine: No polyuria, No polydipsia Psychiatric: No prior psych history, No depression, No anxiety, No suicidal ideation Hematopoietic: No bruising, No lymphadenopathy Allergic/Immuno: No urticaria, No angioedema Neurological: No syncope, No focal symptoms, No weakness, No paresthesia, No headache, No seizure, No dizziness, No confusion, No vertigo Past Medical History - Past Medical History Past Medical History: HTN, Asthma/COPD Family History: Diabetes Melitus, HTN Social History: Smoker, Alcohol, No Drug Use Surgical History: Cholecystectomy Psychiatricy History: None Medication: Reviewed Family Medical History - Family Member Mother History Unknown: Yes Ethnicity: Non- Living Status: Still Living Hx Family Dementia: Yes Father History Unknown: Yes Ethnicity: Non- Living Status: Still Living Hx Family Cancer: No Hx Family Coronary Artery Disease: No Hx Family Congestive Heart Failure: No Hx Family Hypertension: No Hx Family Stroke: No Hx Family Diabetes: No Hx Family Seizures: No Hx Family Dementia: Yes Hx Family AIDS: No Hx Family HIV: No Hx Family COPD: No Hx Family Hepatitis: No Hx Family Psychiatric Problems: No Hx Family Tuberculosis: No Physical Exam - Physical Examination General/Constitutional: Awake, Well-developed, well-nourished, Alert, No distress, GCS 15, Non-toxic appearing, Ambulatory Head: Atraumatic Eyes: Lids, conjuctiva normal, PERRL, EOMI Skin: Nl inspection, No rash, No skin lesions, No ecchymosis, Well hydrated, No lymphadenopathy ENMT: External ears, nose nl, Nasal exam nl, Lips, teeth, gums nl Neck: Nontender, Full ROM w/o pain, No JVD, No nuchal rigidity, No bruit, No mass, No stridor Respiratory: Nl effort/Exclusion, Clear to Auscultation, No Wheeze/Rhonchi/Rales Cardio Vascular: RRR, No murmur, gallop, rubs, NL S1 S2 GI: No tenderness/rebounding/guarding, No organomegaly, No hernia, Normal BS's, Nondistended, No mass/bruits, No McBurney tenderness : No CVA tenderness Extremities: No tenderness or effusion, Full ROM, normal strength in all extremities, No edema, Normal digits & nails Neuro/Psych: Alert/oriented, DTR's symmetric, Normal sensory exam, Normal motor strength, Judgement/insight normal, Mood normal, Normal gait, No focal deficits Misc: normal gait, Normal back, No paraspinal tenderness ED Septic Shock - . Is Septic Shock (SBP<90, OR Lactate>4 mmol\L) present?: No Reassessment (Disposition) - Reassessment Reassessment Condition:: Improved - Diagnosis Diagnosis:: Chronic Pain Syndrome - Aftercare/Follow up Instructions Aftercare/Follow-Up Instructions:: Counseled pt regarding lab results/diagnosis & need follow up, Refer to Discharge Instructions, Counseled pt & family regarding lab results/diagnosis & need follow up - Patient Disposition Discharge/Transfer:: Elope/AWOL (RTER prn if existing s/s reoccur and/or get worse and/or any other new s/s occur; ACIs explained to pt; F/U with PMD in one day or prn; RTER prn ER prn if concerned) ED Discharge Plan - Patient Disposition Admit/Discharge/Transfer: PATIENT ELOPED Condition at Disposition: Stable
[2016-11-03 18:27] LABS: % BASOPHILS 0.4 % (0.0-2.0); % EOSINOPHILS 1.8 % (0.0-5.0); % LYMPHOCYTES 16.2 % (20.0-50.0); % MONOCYTES 11.2 % (2.0-10.0); % NEUTROPHILS 70.4 % (40.0-80.0); HEMATOCRIT 38.5 % (39.0-49.0); HEMOGLOBIN 13.6 gm/dL (13.2-17.3); MEAN CELL VOLUME 92.4 fl (80-99); MEAN CORPUSCULAR HEMOGLOBIN 32.6 pg (26.0-30.0); MEAN CORPUSCULAR HGB CONC 35.3 pg (28.0-36.0); NEUTROPHILE ABSOLUTE 3.6 Th/cmm (1.8-8.0); PLATELET COUNT 244 Th/cmm (150-400); RED BLOOD COUNT 4.17 Mil/cmm (4.30-5.70); RED CELL DISTRIBUTION WIDTH 13.3 % (11.5-20.0)
[2016-11-03 18:38] LABS: AMYLASE SERUM 50 U/L (29-103); ANION GAP 10.8 (7.0-16.0); BUN - UREA NITROGEN 17 mg/dL (7-25); BUN/CREATININE RATIO 18.9; CALCIUM SERUM 9.5 mg/dL (8.6-10.3); CARBON DIOXIDE 23.7 mEq/L (21.0-31.0); CHLORIDE 106 mEq/L (98-107); CREATININE - SERUM 0.9 mg/dL (0.7-1.3); GLUCOSE 99 mg/dL (70-105); LIPASE 27 U/L (11-82); POTASSIUM SERUM 3.5 mEq/L (3.5-5.1); SODIUM SERUM 137 mEq/L (136-145)
[2016-11-03 18:56] LABS: URINE BILIRUBIN NEGATIVE (NEGATIVE); URINE COLOR YELLOW; URINE GLUCOSE (UA) NEGATIVE (NEGATIVE); URINE KETONE NEGATIVE (NEGATIVE)
[2016-11-03 18:57] LABS: URINE BACTERIA NONE SEEN /hpf (NONE SEEN); URINE BLOOD SMALL (NEGATIVE); URINE EPITHELIAL CELLS FEW /lpf (FEW); URINE PH 5.5; URINE PROTEIN 30 mg/dL (NEGATIVE); URINE UROBILINOGEN 0.2 E.U./dL (0.2 - 1.0); URINE WBC NONE SEEN /hpf (0-5)
[2016-11-03 18:59] LABS: WHITE BLOOD COUNT 5.1 Th/cmm (4.8-10.8)
== END 2016-11-03 18:55 | disposition left against medical advice (07) ==
LOC: ER 17:43
DX: R10.84 Generalized abdominal pain (principal); R19.7 Diarrhea, unspecified; I10 Essential (primary) hypertension; J44.9 Chronic obstructive pulmonary disease, unspecified; J45.909 Unspecified asthma, uncomplicated; F17.200 Nicotine dependence, unspecified, uncomplicated; Z90.49 Acquired absence of other specified parts of digestive tract; Z88.6 Allergy status to analgesic agent
CPT/HCPCS: 36415-UA; 80048-TC; 81001-TC; 82150-TC; 83690-TC; 84484-TC; 85025-TC; 93005

== ENCOUNTER 2016-11-14 01:47 | Emergency (ER) | payer MEDICARE, OTHER ==
--- NOTE | 2016-11-14 02:29 | ED Physician Chart ---
Chief Complaint/HPI - Patient Information Date Seen:: 11/14/16 Time Seen:: 01:55 Chief Complaint:: ABDOMINAL PAIN History of Present Illness:: THE PATIENT IS CONCERNED ABOUT ABDOMINAL PAIN BUT ELOPED WITHOUT AN EXPLANATION. Allergies:: Allergies Allergy/AdvReac Type Severity Reaction Status Date / Time ketorolac tromethamine Allergy Verified 11/02/16 13:09 [From Toradol] morphine Allergy Verified 11/02/16 13:09 Vitals:: Vital Signs - 8 hr 11/14/16 01:55 Temp 98.4 F HR 106 RR 18 BP 124/91 O2 Sat % 97 Family Medical History - Family Member Mother History Unknown: Yes Ethnicity: Non- Living Status: Still Living Hx Family Dementia: Yes Father History Unknown: Yes Ethnicity: Non- Living Status: Still Living Hx Family Cancer: No Hx Family Coronary Artery Disease: No Hx Family Congestive Heart Failure: No Hx Family Hypertension: No Hx Family Stroke: No Hx Family Diabetes: No Hx Family Seizures: No Hx Family Dementia: Yes Hx Family AIDS: No Hx Family HIV: No Hx Family COPD: No Hx Family Hepatitis: No Hx Family Psychiatric Problems: No Hx Family Tuberculosis: No ED Septic Shock - . Is Septic Shock (SBP<90, OR Lactate>4 mmol\L) present?: No - <6hrs of presentation: Vital Signs: Vital Signs - 8 hr 11/14/16 01:55 Temp 98.4 F HR 106 RR 18 BP 124/91 O2 Sat % 97
== END 2016-11-14 02:45 | disposition left against medical advice (07) ==
LOC: ER 01:47
DX: R10.9 Unspecified abdominal pain (principal); Z88.6 Allergy status to analgesic agent; Z88.8 Allergy status to other drugs, medicaments and biological substances
CPT/HCPCS: Z7502

== ENCOUNTER 2017-07-29 17:00 | Emergency (ER) | payer MEDICARE, OTHER ==
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
== END 2017-07-29 18:15 | disposition home or self-care (01) ==
LOC: ER 17:00
DX: T21.30XA Burn of third degree of trunk, unspecified site, initial encounter (principal); J44.9 Chronic obstructive pulmonary disease, unspecified; J45.909 Unspecified asthma, uncomplicated; F17.200 Nicotine dependence, unspecified, uncomplicated; Z88.6 Allergy status to analgesic agent; Z88.8 Allergy status to other drugs, medicaments and biological substances; X08.8XXA Exposure to other specified smoke, fire and flames, initial encounter; Y93.89 Activity, other specified; Y92.89 Other specified places as the place of occurrence of the external cause; Y99.8 Other external cause status
CPT/HCPCS: Z7502

== ENCOUNTER 2017-08-20 18:11 | Emergency (ER) | payer MEDICARE, OTHER ==
--- NOTE | 2017-08-20 19:04 | ED Physician Chart ---
ED Chief Complaint/HPI - Patient Information Date Seen:: 08/20/17 Time Seen:: 19:04 Chief Complaint:: Abdominal pain History of Present Illness:: 56 yo male had abdominal pain for 1 week. crampy pain, 8/10, constant, nausea, vomiting and diarrhea. Patient denied blood in stool, fever or chills. He reported history of colitis and diverticulitis, s/p colonoscopy 2 years ago. He was s/p cholecystectomy in 2016. He also had history of kidney stone, but he said the abdominal pain was different. Allergies:: Allergies Allergy/AdvReac Type Severity Reaction Status Date / Time ketorolac tromethamine Allergy Verified 11/02/16 13:09 [From Toradol] morphine Allergy Verified 11/02/16 13:09 Vitals:: Vital Signs - 8 hr 08/20/17 18:41 Temp 98 F HR 91 RR 16 BP 126/100 O2 Sat % 94 ED Review of Systems - Review of Systems General/Constitutional: No fever Skin: No bruising Head: No headache Eyes: No pain ENT: No nasal drainage Neck: No neck pain Cardio Vascular: No chest pain Pulmonary: No SOB GI: Nausea, Vomiting, Diarrhea, Pain G/U: Hematuria Musculoskeletal: No bone or joint pain Neurological: No focal symptoms ED Past Medical History - Past Medical History Past Medical History: HTN, Asthma/COPD, Renal stone, Other (colitis, diverticulitis) Social History: Smoker, No Alcohol, No Drug Use Surgical History: Cholecystectomy, other (history of tracheostomy, laparotomy) Family Medical History - Family Member Mother History Unknown: Yes Ethnicity: Non- Living Status: Unknown Hx Family Dementia: Yes Father History Unknown: Yes Name:: WILMA Ethnicity: Non- Living Status: Still Living Hx Family Cancer: No Hx Family Coronary Artery Disease: No Hx Family Congestive Heart Failure: No Hx Family Hypertension: No Hx Family Stroke: No Hx Family Diabetes: No Hx Family Seizures: No Hx Family Dementia: Yes Hx Family AIDS: No Hx Family HIV: No Hx Family COPD: No Hx Family Hepatitis: No Hx Family Psychiatric Problems: No Hx Family Tuberculosis: No Other Medical History: [facility] Physical Exam - Physical Examination General/Constitutional: Awake Head: Atraumatic Eyes: PERRL Skin: No ecchymosis ENMT: Nasal exam nl Neck: No nuchal rigidity Respiratory: No Wheeze/Rhonchi/Rales Cardio Vascular: RRR, No murmur, gallop, rubs, NL S1 S2 Other comments:: B/l CVA tenderness Extremities: normal strength in all extremities Neuro/Psych: No focal deficits ED Labs/Radiology/EKG Results - Radiology Results Results: CT abdomen/pelvis: multiple right and left renal caculi, diverticulosis Renal u/s: no hydronephrosis ED Assessment - Assessment General Assessment: Bilateral renal calculi Ureteral colic Hematuria Assessment/Comments:: CBC, CMP, lipase UA, urine drug screen Renal u/s CT abdomen/pelvis Levaquin 500mg IV NS 1L IV bolus Dilaudid 0.5mg IV D/c home Ciprofloxacin 500mg po bid F/u PCP or return to ER if symptoms worsen ED Septic Shock - . Is Septic Shock (SBP<90, OR Lactate>4 mmol\L) present?: No - <6hrs of presentation: Vital Signs: Vital Signs - 8 hr 08/20/17 18:41 Temp 98 F HR 91 RR 16 BP 126/100 O2 Sat % 94 ED Reassessment (Disposition) - Reassessment Reassessment Condition:: Improved - Patient Disposition Discharge/Transfer:: Home ED Discharge Plan - Patient Disposition Admit/Discharge/Transfer: PT DISCHARGED HOME Instructions: Ureteral Colic, [id number] Additional Instructions: follow up with your primary medical doctor ronny take prescribed medications as ordered
[2017-08-20 20:09] LABS: % BASOPHILS 0.3 % (0.0-2.0); % EOSINOPHILS 13.5 % (0.0-5.0); % LYMPHOCYTES 31.3 % (20.0-50.0); % MONOCYTES 7.7 % (2.0-10.0); % NEUTROPHILS 47.2 % (40.0-80.0); EOSINOPHILE ABSOLUTE 0.7 Th/cmm (0.1-0.4); LYMPHOCYTE ABSOLUTE 1.7 Th/cmm (1.5-3.0); MEAN CELL VOLUME 99.7 fl (80-99); MEAN CORPUSCULAR HEMOGLOBIN 32.9 pg (26.0-30.0); MEAN PLATELET VOLUME 7.3 fl; MONOCYTE ABSOLUTE 0.4 Th/cmm (0.3-1.0); NEUTROPHILE ABSOLUTE 2.7 Th/cmm (1.8-8.0); PLATELET COUNT 230 Th/cmm (150-400); RED BLOOD COUNT 5.15 Mil/cmm (4.30-5.70); RED CELL DISTRIBUTION WIDTH 12.9 % (11.5-20.0); WHITE BLOOD COUNT 5.5 Th/cmm (4.8-10.8)
[2017-08-20 20:20] LABS: ALB/GLOB RATIO 1.6 (1.0-1.8); ALBUMIN 4.4 gm/dL (4.2-5.5); ALKALINE PHOSPHATASE 222 U/L (34-104); AMYLASE SERUM 50 U/L (29-103); ANION GAP 10.3 (7.0-16.0); BILIRUBIN,TOTAL 0.9 mg/dL (0.3-1.0); BUN - UREA NITROGEN 14 mg/dL (7-25); CALCIUM SERUM 9.2 mg/dL (8.6-10.3); CARBON DIOXIDE 23.4 mEq/L (21.0-31.0); CHLORIDE 106 mEq/L (98-107); CREATININE - SERUM 0.7 mg/dL (0.7-1.3); GFR AFRICAN-AMERICAN > 60.0 ml/min (>90); GFR NON AFRICAN-AMERICAN > 60.0 ml/min; GLUCOSE 95 mg/dL (70-105); LIPASE 40 U/L (11-82); POTASSIUM SERUM 3.7 mEq/L (3.5-5.1); SGOT 19 U/L (13-39); SGPT/ALT 50 U/L (7-52); SODIUM SERUM 136 mEq/L (136-145); TOTAL PROTEIN,SERUM 7.1 gm/dL (6.0-8.3)
[2017-08-20 20:21] LABS: HEMATOCRIT 51.4 % (41.0-60)
[2017-08-20 20:27] LABS: URINE BILIRUBIN SMALL (NEGATIVE); URINE BLOOD SMALL (NEGATIVE); URINE GLUCOSE (UA) NEGATIVE (NEGATIVE); URINE KETONE NEGATIVE (NEGATIVE); URINE LEUKOCYTE ESTERASE NEGATIVE (NEGATIVE); URINE MICROSCOPIC INDICATED? YES; URINE NITRATE NEGATIVE (NEGATIVE); URINE PROTEIN TRACE mg/dL (NEGATIVE); URINE SOURCE RANDOM; URINE UROBILINOGEN 0.2 E.U./dL (0.2 - 1.0)
[2017-08-20 20:31] LABS: URINE CLARITY CLEAR (CLEAR); URINE COLOR YELLOW
[2017-08-20 20:32] LABS: URINE BACTERIA NONE SEEN /hpf (NONE SEEN); URINE EPITHELIAL CELLS FEW /lpf (FEW); URINE WBC NONE SEEN /hpf (0-5)
[2017-08-20 20:47] LABS: AMPHETAMINE URINE NEGATIVE (NEGATIVE); BARBITURATES URINE NEGATIVE (NEGATIVE); BENZODIAZEPINES QUAL URINE NEGATIVE (NEGATIVE); CANNABINOID THC NEGATIVE (NEGATIVE); COCAINE METABOLITE QUAL URINE NEGATIVE (NEGATIVE); METHADONE URINE NEGATIVE (NEGATIVE); METHAMPHETAMINES QUAL URINE NEGATIVE (NEGATIVE); OPIATES (MORPHINE) QUAL. URINE NEGATIVE (NEGATIVE); PHENCYCLIDINE (PCP) URINE NEGATIVE (NEGATIVE); TRICYCLICS (TCA) QUAL. URINE NEGATIVE (NEGATIVE)
[2017-08-20] MEDS ORDERED: Sodium Chloride 0.9% 1,000 ML IV ONE (22:33)
[2017-08-20] MEDS ORDERED: HYDROmorphone 1 mg/mL 1mL Syr IVP STA (22:57)
[2017-08-20] MEDS ORDERED: HYDROmorphone 1 mg/mL 1mL Syr ONE (22:59)
[2017-08-20] MEDS ORDERED: Levofloxacin 500mg/100mL 500 MG/100 ML BAG IV ONE ×2 (23:08→23:16)
--- NOTE | 2017-08-21 09:19 | Diagnostic Imaging Report ---
Renal ultrasound HISTORY: Renal stones. COMPARISON: CT abdomen and pelvis performed the same day and previous renal ultrasound on 11/02/2016 Technique: Sonography of the kidneys and urinary bladder was performed in multiple planes. FINDINGS: The right kidney measures 11.0 x 4.8 cm. 2 echogenic foci are seen within the right kidney the largest measuring 1.3 cm. No hydronephrosis. Evaluation of the left kidney is limited due to bowel gas. The left kidney measures 611.4 x 6.2 cm. No discrete focal lesions or evidence of hydronephrosis. The prevoid bladder volume is 146 mL's. The patient refused to void. Mild generalized prominence of the urinary bladder wall is noted. IMPRESSION: No evidence of hydronephrosis Echogenic foci within the right kidney the largest measuring 1.3 cm. Findings may represent renal stones. Please refer to CT abdomen and pelvis performed the same date for further details. Mild prominence of the urinary bladder wall. Inflammatory process cannot be excluded. Please correlate with clinical findings.
--- NOTE | 2017-08-21 09:35 | Diagnostic Imaging Report ---
CT abdomen and pelvis without intravenous contrast Indication: Abdominal pain Comparison: Renal ultrasound the same day and previous CT abdomen and pelvis on 10/24/2016, Technique: Axial images were obtained from the lung bases to the bilateral proximal femurs without IV contrast. Coronal reconstructions were made. total DLP: 378, CTDI8.3 FINDINGS: Hypoventilatory changes of the lung bases are noted. Assessment of the solid organs is limited due to lack of IV contrast. No evidence of focal hepatic lesions. The patient is status post cholecystectomy. No focal splenic lesions. No focal pancreatic or adrenal lesions. 3 mm nonobstructive left renal calculus is noted. Multiple nonobstructive right renal calculi are also noted largest measuring 3 mm. Areas of mild renal scarring is noted. There is a 1 cm low-density left renal lesion along the mid pole probably representing a cyst. Prostate gland calcifications are noted. Moderate stool is seen throughout the colon with nonspecific gas-filled loops of bowel. No evidence of acute appendicitis. Surgical clip is seen within the pelvis. Minimal diverticulosis is noted without evidence of diverticulitis. Degenerative changes of the spine are noted greatest in the lower lumbar spine. IMPRESSION: Multiple nonobstructive right renal calculi the largest measuring 3 mm. Additional multiple nonobstructive left renal calculi are noted largest measuring 3 mm. Minimal diverticulosis without evidence of diverticulitis. Evidence of prior cholecystectomy. Low-density left mid pole renal lesion probably representing a small cyst measuring 1 cm. Consider follow up if indicated. Degenerative changes.
== END 2017-08-20 23:40 | disposition home or self-care (01) ==
LOC: ER 18:11
DX: R10.9 Unspecified abdominal pain (principal); I10 Essential (primary) hypertension; J45.909 Unspecified asthma, uncomplicated; J44.9 Chronic obstructive pulmonary disease, unspecified; F17.200 Nicotine dependence, unspecified, uncomplicated
CPT/HCPCS: 99285; 96365; 96375; 76770; 74176; 36415; 80307; 85025; 81001; 82150; 83690; 80053; J1956; J1170; J7030

== ENCOUNTER 2017-09-26 20:33 | Emergency (ER) | payer MEDICARE, OTHER ==
[2017-09-26] MEDS ORDERED: NITROGLYCERIN SPRAY 4.9 GM SL STA (20:49)
[2017-09-26] MEDS ORDERED: Diltiazem 5 mg/mL 5mL Vial IVP STA (20:50)
--- NOTE | 2017-10-23 01:18 | ER Physician Documentation ---
DATE OF SERVICE: 09/26/2017 A 57-year-old male patient did came here on ____. To the best of my knowledge, he has choked on a piece of meat, he was cooking some meat when he came home and he choked on it. It was in the center of his chest. He could hardly breathe. He was very, very short of breath and the patient's triage nurse saw the patient and the patient had back pain or injury. The patient does not tell me that the patient had back pain. This is the nurse writing that the patient had back pain or injury. The patient did not have any back pain. The patient had some chest discomfort and he could not swallow and patient has not traveled any place outside the country. We will base the command, coma scale is 15. Vital signs are found to be within normal limits. Heart rate was 82, respiratory rate is 18, temperature 97.2. Pain scale is 5. According to him, height is 15.24 cm, weight is 72.575. Infection is none known. The patient was seen by me. Vital signs were normal. Chest was clear and patient still had some pain in the epigastric area. The patient was given fluids. The patient was given antibiotics. The patient was given pantoprazole. The patient was given Cardizem and this Cardizem was given to dilate the esophageal muscles, but the nurse instead of talking to me went and asked the solar installation crew supervisor of the department at nighttime and the solar installation crew supervisor said Cardizem could be given only for heart rate of 120 and for no other reason and I believe that they have to go and read some more medicine to know why Cardizem can be given to somebody. Nitroglycerin was also given to the patient. Pantoprazole was given. Reglan was given and patient after that, smooth muscle opened up, but the nurse did not carry out my instruction, instead went to the patient and god knows what they talked among themselves and patient refused to take any medication and was very, very rude to me and the patient left after asking me to check his throat that I remember; I checked his throat again, I checked him before, I checked him again; there was nothing was seen and then the patient left the Emergency Room and that the final diagnosis was the patient had a choking of big piece of meat in the center of the esophagus. So, this to the best of my knowledge and memory was dictated. But definitely the nurse did not carry out my orders. Definitely the nurse instead of talking to me, went to the solar installation crew supervisor. The solar installation crew supervisor also did not come and talk to me, knows only one indication of where to give this medication. JOB# [id number]
== END 2017-09-26 22:45 | disposition home or self-care (01) ==
LOC: ER 20:33
DX: T18.128A Food in esophagus causing other injury, initial encounter (principal); X58.XXXA Exposure to other specified factors, initial encounter; Y93.89 Activity, other specified; Y92.89 Other specified places as the place of occurrence of the external cause; Y99.8 Other external cause status
CPT/HCPCS: Z7502

== ENCOUNTER 2017-12-12 22:31 | Emergency (ER) | payer MEDICARE, OTHER ==
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
[2017-12-12 23:04] LABS: URINE MICROSCOPIC INDICATED? YES; URINE SOURCE MIDSTREAM
[2017-12-12 23:06] LABS: % BASOPHILS 0.5 % (0.0-2.0); % EOSINOPHILS 2.8 % (0.0-5.0); % LYMPHOCYTES 37.2 % (20.0-50.0); % MONOCYTES 8.5 % (2.0-10.0); EOSINOPHILE ABSOLUTE 0.1 Th/cmm (0.1-0.4); HEMATOCRIT 48.9 % (41.0-60); MEAN CELL VOLUME 99.6 fl (80-99); MEAN CORPUSCULAR HEMOGLOBIN 34.7 pg (26.0-30.0); MEAN CORPUSCULAR HGB CONC 34.9 pg (28.0-36.0); MEAN PLATELET VOLUME 6.7 fl; MONOCYTE ABSOLUTE 0.5 Th/cmm (0.3-1.0); NEUTROPHILE ABSOLUTE 2.7 Th/cmm (1.8-8.0); PLATELET COUNT 314 Th/cmm (150-400); RED BLOOD COUNT 4.91 Mil/cmm (4.30-5.70); RED CELL DISTRIBUTION WIDTH 13.1 % (11.5-20.0); WHITE BLOOD COUNT 5.3 Th/cmm (4.8-10.8)
[2017-12-12 23:15] LABS: URINE BILIRUBIN NEGATIVE (NEGATIVE); URINE BLOOD TRACE (NEGATIVE); URINE GLUCOSE (UA) NEGATIVE (NEGATIVE); URINE KETONE NEGATIVE (NEGATIVE); URINE LEUKOCYTE ESTERASE NEGATIVE (NEGATIVE); URINE NITRATE NEGATIVE (NEGATIVE); URINE PH 5.5 (4.6 - 8.0); URINE PROTEIN NEGATIVE (NEGATIVE); URINE UROBILINOGEN 0.2 E.U./dL (0.2 - 1.0)
[2017-12-12 23:19] LABS: URINE CLARITY CLEAR (CLEAR); URINE COLOR YELLOW
[2017-12-12 23:22] LABS: URINE BACTERIA FEW /hpf (NONE SEEN); URINE EPITHELIAL CELLS FEW /lpf (FEW); URINE RBC 0-2 /hpf (0-5); URINE WBC 0-2 /hpf (0-5)
[2017-12-12 23:25] LABS: ALB/GLOB RATIO 1.5 (1.0-1.8); ALBUMIN 4.4 gm/dL (4.2-5.5); ALKALINE PHOSPHATASE 192 U/L (34-104); ANION GAP 11.3 (7.0-16.0); BUN - UREA NITROGEN 14 mg/dL (7-25); CALCIUM SERUM 9.6 mg/dL (8.6-10.3); CARBON DIOXIDE 25.2 mEq/L (21.0-31.0); CHLORIDE 101 mEq/L (98-107); CREATININE - SERUM 0.9 mg/dL (0.7-1.3); GFR AFRICAN-AMERICAN > 60.0 ml/min (>90); GFR NON AFRICAN-AMERICAN > 60.0 ml/min; GLUCOSE 100 mg/dL (70-105); POTASSIUM SERUM 3.5 mEq/L (3.5-5.1); SGOT 31 U/L (13-39); SGPT/ALT 45 U/L (7-52); SODIUM SERUM 134 mEq/L (136-145); TOTAL PROTEIN,SERUM 7.3 gm/dL (6.0-8.3)
[2017-12-13] MEDS ORDERED: Hydrocodone/APAP 5mg/325mg Tab PO ONE (00:19)
[2017-12-13] MEDS ORDERED: Hydrocodone/APAP 5mg/325mg Tab ONE (00:25)
--- NOTE | 2017-12-13 07:57 | Diagnostic Imaging Report ---
CT abdomen and pelvis without intravenous contrast Indication: Right flank pain Comparison: CT abdomen and pelvis on 08/20/2017, Technique: Axial images were obtained from the lung bases to the bilateral proximal femurs without IV contrast. Coronal reconstructions were made. total DLP: 412, CTDI9 FINDINGS: Hypoventilatory and atelectatic changes of the lung bases are noted there is irregular density of the left lung base probably representing areas of subsegmental atelectasis versus scarring. This was not seen on previous CT examination on 08/20/2017. Evaluation of the solid organs is limited due to lack of IV contrast. No evidence of focal hepatic lesions. The patient status post cholecystectomy. No focal splenic or pancreatic lesions. No focal adrenal lesions. Multiple nonobstructive bilateral renal calculi are noted. No hydronephrosis. Prostate gland calcifications are noted. Diverticulosis is noted without evidence of diverticulitis. No evidence of appendicitis. No evidence of free fluid or free air. Mild atherosclerosis is noted. Degenerative changes and vasogenic changes of the spine are noted. IMPRESSION: Multiple nonobstructive bilateral renal calculi. Diverticulosis without evidence of diverticulitis. Evidence of prior cholecystectomy. Irregular right basal density. This is probably due to atelectasis. This was not seen on previous exam on 08/20/2017. Other etiologies such as infiltrate is considered much less likely. Short-term follow-up CT examination may be obtained if indicated.
== END 2017-12-13 00:50 | disposition home or self-care (01) ==
LOC: ER 22:31
DX: R30.0 Dysuria (principal); R10.9 Unspecified abdominal pain
CPT/HCPCS: 36415-UA; 80053-TC; 81001-TC; 85025-TC

== ENCOUNTER 2018-03-19 19:48 | Emergency (ER) | payer MEDICARE, OTHER ==
[2018-03-19] MEDS ORDERED: Albuterol Nebulizer 2.5mg/3mL HHN STA (20:26)
[2018-03-19 20:28] LABS: URINE SOURCE CLEAN C
[2018-03-19 20:30] LABS: URINE BILIRUBIN NEGATIVE (NEGATIVE); URINE BLOOD SMALL (NEGATIVE); URINE GLUCOSE (UA) NEGATIVE (NEGATIVE); URINE KETONE NEGATIVE (NEGATIVE); URINE LEUKOCYTE ESTERASE NEGATIVE (NEGATIVE); URINE MICROSCOPIC INDICATED? YES; URINE NITRATE NEGATIVE (NEGATIVE); URINE PH 5.5 (4.6 - 8.0); URINE PROTEIN NEGATIVE (NEGATIVE); URINE UROBILINOGEN 0.2 E.U./dL (0.2 - 1.0)
[2018-03-19] MEDS ORDERED: Albuterol Nebulizer 2.5mg/3mL HHN ONE (20:32)
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
[2018-03-19 20:53] LABS: AMPHETAMINE URINE NEGATIVE (NEGATIVE); BARBITURATES URINE NEGATIVE (NEGATIVE); BENZODIAZEPINES QUAL URINE NEGATIVE (NEGATIVE); CANNABINOID THC NEGATIVE (NEGATIVE); COCAINE METABOLITE QUAL URINE NEGATIVE (NEGATIVE); METHADONE URINE NEGATIVE (NEGATIVE); METHAMPHETAMINES QUAL URINE NEGATIVE (NEGATIVE); OPIATES (MORPHINE) QUAL. URINE NEGATIVE (NEGATIVE); PHENCYCLIDINE (PCP) URINE NEGATIVE (NEGATIVE); TRICYCLICS (TCA) QUAL. URINE NEGATIVE (NEGATIVE); URINE CLARITY CLEAR (CLEAR); URINE COLOR YELLOW
[2018-03-19 20:55] LABS: URINE BACTERIA OCCASIONAL /hpf (NONE SEEN); URINE EPITHELIAL CELLS FEW /lpf (FEW); URINE WBC 0-2 /hpf (0-5)
== END 2018-03-19 20:57 | disposition home or self-care (01) ==
LOC: ER 19:48
DX: R10.9 Unspecified abdominal pain (principal); G89.29 Other chronic pain; K13.29 Other disturbances of oral epithelium, including tongue; F17.210 Nicotine dependence, cigarettes, uncomplicated; R20.0 Anesthesia of skin; J44.9 Chronic obstructive pulmonary disease, unspecified; Z72.89 Other problems related to lifestyle; Z88.5 Allergy status to narcotic agent; Z88.6 Allergy status to analgesic agent
CPT/HCPCS: 99284; 96372; 94640; 80307; 81001; J2930; J7613; Z7502

== ENCOUNTER 2018-06-04 14:47 | Emergency (ER) | payer MEDICARE, OTHER ==
[2018-06-04 15:13] LABS: pH 7.44 (7.35-7.45)
[2018-06-04 15:25] LABS: % BASOPHILS 0.7 % (0.0-2.0); % EOSINOPHILS 3.6 % (0.0-5.0); % LYMPHOCYTES 29.3 % (20.0-50.0); % NEUTROPHILS 57.4 % (40.0-80.0); EOSINOPHILE ABSOLUTE 0.2 Th/cmm (0.1-0.4); HEMATOCRIT 49.3 % (41.0-60); HEMOGLOBIN 16.3 gm/dL (12-16); LYMPHOCYTE ABSOLUTE 1.8 Th/cmm (1.5-3.0); MEAN CELL VOLUME 100.8 fl (80-99); MEAN CORPUSCULAR HEMOGLOBIN 33.3 pg (26.0-30.0); MEAN PLATELET VOLUME 7.2 fl; MONOCYTE ABSOLUTE 0.5 Th/cmm (0.3-1.0); NEUTROPHILE ABSOLUTE 3.5 Th/cmm (1.8-8.0); PLATELET COUNT 215 Th/cmm (150-400); RED BLOOD COUNT 4.89 Mil/cmm (4.30-5.70)
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
[2018-06-04] MEDS ORDERED: Albuterol/Ipratropium Neb 3 ML AERS HHN ONE ×2 (15:36→15:40)
[2018-06-04 15:46] LABS: ALB/GLOB RATIO 1.6 (1.0-1.8); ALBUMIN 4.2 gm/dL (4.2-5.5); ALKALINE PHOSPHATASE 119 U/L (34-104); ANION GAP 9.8 (7.0-16.0); BILIRUBIN,TOTAL 0.4 mg/dL (0.3-1.0); BUN - UREA NITROGEN 13 mg/dL (7-25); CALCIUM SERUM 9.5 mg/dL (8.6-10.3); CARBON DIOXIDE 27.3 mEq/L (21.0-31.0); CHLORIDE 105 mEq/L (98-107); CHOLESTEROL 205 mg/dL (<200); CREATININE - SERUM 0.9 mg/dL (0.7-1.3); GFR AFRICAN-AMERICAN > 60.0 ml/min (>90); GFR NON AFRICAN-AMERICAN > 60.0 ml/min; GLUCOSE 93 mg/dL (70-105); HDL -HIGH DENSITY LIPOPROTEIN 44 mg/dL (23-92); POTASSIUM SERUM 4.1 mEq/L (3.5-5.1); SGOT 18 U/L (13-39); SGPT/ALT 15 U/L (7-52); SODIUM SERUM 138 mEq/L (136-145); TOTAL PROTEIN,SERUM 6.9 gm/dL (6.0-8.3); TRIGLYCERIDES 168 mg/dL (<150)
[2018-06-04 16:26] LABS: URINE SOURCE CLEAN C
[2018-06-04 16:29] LABS: URINE BILIRUBIN NEGATIVE (NEGATIVE); URINE BLOOD TRACE (NEGATIVE); URINE GLUCOSE (UA) NEGATIVE (NEGATIVE); URINE KETONE NEGATIVE (NEGATIVE); URINE LEUKOCYTE ESTERASE NEGATIVE (NEGATIVE); URINE MICROSCOPIC INDICATED? YES; URINE NITRATE NEGATIVE (NEGATIVE); URINE PH 6.5 (4.6 - 8.0); URINE PROTEIN NEGATIVE (NEGATIVE); URINE UROBILINOGEN 0.2 E.U./dL (0.2 - 1.0)
[2018-06-04 16:43] LABS: URINE CLARITY CLEAR (CLEAR); URINE COLOR YELLOW
[2018-06-04 16:44] LABS: URINE BACTERIA NONE SEEN /hpf (NONE SEEN); URINE EPITHELIAL CELLS OCCASIONAL /lpf (FEW); URINE RBC NONE SEEN /hpf (0-5); URINE WBC NONE SEEN /hpf (0-5)
[2018-06-04 16:46] LABS: AMPHETAMINE URINE NEGATIVE (NEGATIVE); BARBITURATES URINE NEGATIVE (NEGATIVE); BENZODIAZEPINES QUAL URINE NEGATIVE (NEGATIVE); CANNABINOID THC NEGATIVE (NEGATIVE); COCAINE METABOLITE QUAL URINE NEGATIVE (NEGATIVE); METHADONE URINE NEGATIVE (NEGATIVE); METHAMPHETAMINES QUAL URINE NEGATIVE (NEGATIVE); OPIATES (MORPHINE) QUAL. URINE NEGATIVE (NEGATIVE); PHENCYCLIDINE (PCP) URINE NEGATIVE (NEGATIVE); TRICYCLICS (TCA) QUAL. URINE NEGATIVE (NEGATIVE)
[2018-06-04 17:31] LABS: PROTHROMBIN TIME (TEST) 9.6 SECONDS (9.5-11.5)
[2018-06-04 17:32] LABS: INR 0.95 (0.5-1.4)
--- NOTE | 2018-06-05 09:28 | Diagnostic Imaging Report ---
CHEST X-RAY: AP view INDICATION: Shortness of breath COMPARISON: 10/27/2016 FINDINGS: Hyperinflated lungs are seen with COPD changes. Slight increased right mid lung markings are noted. No focal consolidation or effusions. Heart size is normal. Degenerative changes of the spine are noted. IMPRESSION: Hyperinflated lungs with COPD changes. Slight increased right mid lung markings are seen which may be chronic. Faint infiltrate is less likely. Please correlate with clinical findings. Otherwise no focal consolidation is identified.
== END 2018-06-04 17:30 | disposition home or self-care (01) ==
LOC: ER 14:47
DX: J44.9 Chronic obstructive pulmonary disease, unspecified (principal); I10 Essential (primary) hypertension; F17.200 Nicotine dependence, unspecified, uncomplicated; Z87.442 Personal history of urinary calculi; Z88.5 Allergy status to narcotic agent; Z88.6 Allergy status to analgesic agent
CPT/HCPCS: 99285; 96374; 82803; 36600; 94640; 93005; 71045; 84484; 36415; 85379; 80307; 84443; 85025; 85610; 85730; 81001; 80053; 80061; Z7610; J2930; J2001